=== PATIENT | female | born 1935 | race Caucasian/White ===

== ENCOUNTER 2017-09-24 20:11 | Inpatient (IN) | payer MEDICARE, MEDICAID ==
[~2017-09-24] VITALS: Ht 160 cm; Wt 60.3 kg
[2017-09-24 21:19] LABS: BASOPHILS % (AUTO) 1.4 % (0.0-2.0); EOSINOPHILS % (AUTO) 2.8 % (0.0-3.0); LYMPHOCYTES % (AUTO) 13.9 % (20.0-45.0); MEAN CORPUSCULAR HEMOGLOBIN 30.1 PG (27.0-31.0); MEAN CORPUSCULAR HGB CONC 31.4 G/DL (32.0-36.0); MEAN CORPUSCULAR VOLUME 96 FL (80-99); MONOCYTES % (AUTO) 6.4 % (1.0-10.0); NEUTROPHILS % (AUTO) 75.5 % (45.0-75.0); PLATELET COUNT 301 K/UL (150-450); RED BLOOD COUNT 4.56 M/UL (4.20-5.40); WHITE BLOOD COUNT 9.3 K/UL (4.8-10.8)
[2017-09-24 21:26] LABS: APPEARANCE,URINE SLIGHTLY CLOUDY; KETONES,URINE NEGATIVE (NEGATIVE); LEUKOCYTE ESTERASE ,URINE 3+ (NEGATIVE); NITRITE,URINE POSITIVE (NEGATIVE); PH,URINE 6 (4.5-8.0); PROTEIN,URINE 1+ (NEGATIVE); UROBILINOGEN,URINE NORMAL MG/DL (0.0-1.0)
[2017-09-24 21:39] LABS: ALANINE AMINOTRANSFERASE 29 U/L (12-78); ALBUMIN/GLOBULIN RATIO 1.1 (1.0-2.7); ANION GAP 8 mmol/L (5-15); ASPARTATE AMINO TRANSFERASE 20 U/L (15-37); CALCIUM 9.9 MG/DL (8.5-10.1); CARBON DIOXIDE 28 MMOL/L (21-32); CHLORIDE 102 MMOL/L (98-107); CREATININE 0.9 MG/DL (0.55-1.30); POTASSIUM 4.2 MMOL/L (3.5-5.1); SODIUM 138 MMOL/L (136-145); TOTAL PROTEIN 7.7 G/DL (6.4-8.2)
[2017-09-24 22:02] LABS: BACTERIA,URINE MANY /HPF; SQUAMOUS EPITHELIAL CELL,UR FEW /LPF (NONE/OCC)
[2017-09-24] MEDS ORDERED: Morphine Sulfate 2mg/ml Inj IVP PRN (22:30)
[2017-09-24] MEDS ORDERED: Albuterol/Ipratropium 3ml neb HHN PRN (22:30)
[2017-09-24] MEDS ORDERED: Miralax 17gm pkt ORAL PRN (22:30)
--- NOTE | 2017-09-24 22:36 | Emergency Room Report ---
History of Present Illness General Chief Complaint: Female Urogenital Problems Source: Patient, EMS Present Illness HPI Patient is an 82-year-old female sent in by long term after increased generalized weakness. Patient prior history of bladder surgery as well as urinary tract infection. She had recently been diagnosed with Klebsiella in her urine. The patient had not been vomiting. She denied any fever. Patient had been noted to be having history of urinary retention as well as prior bladder surgery for many years ago. The patient was sent in by her physician for further evaluation to [facility] Allergies: Coded Allergies: TETRACYCLINE (Verified Allergy, Unknown, 09/24/17) Patient History Past Medical History: see triage record Reviewed Nursing Documentation: PMH: Agreed, PSxH: Agreed Nursing Documentation-PMH Hx COPD: Yes Hx Diabetes: Yes Review of Systems All Other Systems: negative except mentioned in HPI Physical Exam Vital Signs Date Time Temp Pulse Resp B/P (MAP) Pulse Ox O2 Delivery O2 Flow Rate FiO2 09/24/17 20:18 98.1 90 16 136/79 96 Room Air Sp02 EP Interpretation: reviewed, normal General Appearance: normal inspection, well appearing, no apparent distress, alert, GCS 15 Head: atraumatic ENT: normal ENT inspection, hearing grossly normal, normal voice Neck: normal inspection, full range of motion, supple, no bony tend Respiratory: normal inspection, lungs clear, normal breath sounds, no respiratory distress, no retraction, no wheezing Cardiovascular #1: regular rate, rhythm, no edema Gastrointestinal: normal inspection, normal bowel sounds, non tender, soft, no guarding, no hernia Genitourinary: no CVA tenderness Musculoskeletal: normal inspection, back normal, normal range of motion Neurologic: normal inspection, alert, oriented x3, responsive, slab polisher III-XII nml as tested, speech normal Psychiatric: judgement/insight normal, anxious Skin: normal inspection, normal color, no rash Medical Decision Making Diagnostic Impression: Primary Impression: Complicated UTI (urinary tract infection) Additional Impressions: Generalized weakness Diabetes ER Course The patient presented for urinary tract infection. Because of complexity of patient's case laboratory testing and imaging studies were ordered. I laboratory studies were notable for evidence of urinary infection. The patient was given IV antibiotics.WBC and lactic acid level were normal. Dr. Arnel Wagner was contacted for inpatient management due to panel physician Labs Test 09/24/17 21:00 White Blood Count 9.3 K/UL (4.8-10.8) Red Blood Count 4.56 M/UL (4.20-5.40) Hemoglobin 13.7 G/DL (12.0-16.0) Hematocrit 43.8 % (37.0-47.0) Mean Corpuscular Volume 96 FL (80-99) Mean Corpuscular Hemoglobin 30.1 PG (27.0-31.0) Mean Corpuscular Hemoglobin Concent 31.4 G/DL (32.0-36.0) Red Cell Distribution Width 12.0 % (11.6-14.8) Platelet Count 301 K/UL (150-450) Mean Platelet Volume 5.0 FL (6.5-10.1) Neutrophils (%) (Auto) 75.5 % (45.0-75.0) Lymphocytes (%) (Auto) 13.9 % (20.0-45.0) Monocytes (%) (Auto) 6.4 % (1.0-10.0) Eosinophils (%) (Auto) 2.8 % (0.0-3.0) Basophils (%) (Auto) 1.4 % (0.0-2.0) Urine Color Pale yellow Urine Appearance Slightly cloudy Urine pH 6 (4.5-8.0) Urine Specific [place] 1.015 (1.005-1.035) Urine Protein 1+ (NEGATIVE) Urine Glucose (UA) Negative (NEGATIVE) Urine Ketones Negative (NEGATIVE) Urine Occult Blood 2+ (NEGATIVE) Urine Nitrite Positive (NEGATIVE) Urine Bilirubin Negative (NEGATIVE) Urine Urobilinogen Normal MG/DL (0.0-1.0) Urine Leukocyte Esterase 3+ (NEGATIVE) Urine RBC 5-10 /HPF (0 - 2) Urine WBC 10-15 /HPF (0 - 2) Urine Squamous Epithelial Cells Few /LPF (NONE/OCC) Urine Bacteria Many /HPF (NONE) Sodium Level 138 MMOL/L (136-145) Potassium Level 4.2 MMOL/L (3.5-5.1) Chloride Level 102 MMOL/L (98-107) Carbon Dioxide Level 28 MMOL/L (21-32) Anion Gap 8 mmol/L (5-15) Blood Urea Nitrogen 20 mg/dL (7-18) Creatinine 0.9 MG/DL (0.55-1.30) Estimat Glomerular Filtration Rate mL/min (>60) Glucose Level 171 MG/DL (74-106) Lactic Acid Level 0.90 mmol/L (0.66-2.22) Calcium Level 9.9 MG/DL (8.5-10.1) Total Bilirubin 0.3 MG/DL (0.2-1.0) Aspartate Amino Transf (AST/SGOT) 20 U/L (15-37) Alanine Aminotransferase (ALT/SGPT) 29 U/L (12-78) Alkaline Phosphatase 100 U/L (46-116) Total Protein 7.7 G/DL (6.4-8.2) Albumin 4.1 G/DL (3.4-5.0) Globulin 3.6 g/dL Albumin/Globulin Ratio 1.1 (1.0-2.7) Last Vital Signs Date Time Temp Pulse Resp B/P (MAP) Pulse Ox O2 Delivery O2 Flow Rate FiO2 09/24/ 20:18 98.1 90 16 136/79 96 Room Air Status: unchanged Disposition: ADMITTED INPATIENT Condition: Serious - ` Referrals: NON PHYSICIAN (PCP) Ranjeet Hagen Sep 24, 2017 22:36
--- NOTE | 2017-09-24 22:43 | History & Physical ---
History and Physical History & Physicial The patient was seen and examined at bedside and all new and available data was reviewed in the patients chart. Last 24 Hour Vital Signs Date Time Temp Pulse Resp B/P (MAP) Pulse Ox O2 Delivery O2 Flow Rate FiO2 09/24/17 20:18 98.1 90 16 136/79 96 Room Air F/U Labs F/U cultures Abx: Vanco, cefepime (Patient was seen earlier today. Signature timestamp does not reflect patient encounter time) Arnel Teague MD, MD Sep 24, 2017 22:43
[2017-09-24 23:16] VITALS: BP 122/80
[2017-09-25] VITALS: BP 140/77
[2017-09-25] MEDS ORDERED: Vancomycin 1 GM in D5W 275 ML IV SCH (00:30)
[2017-09-25] MEDS: Vancomycin 750mg/D5W 275ml IVPB SCH ×2 (02:03)
[2017-09-25 04:30] VITALS: BP 136/72
[2017-09-25] MEDS ORDERED: ASPIRIN-LOW81 MG ORAL (05:42)
[2017-09-25] MEDS ORDERED: GERI-KOT8.6 MG PO (05:42)
[2017-09-25] MEDS ORDERED: METFORMIN HCL500 M1 ORAL (05:42)
[2017-09-25] MEDS ORDERED: ZOLPIDEM TARTRAT5 MG ORAL (05:42)
[2017-09-25] MEDS ORDERED: JANUVIA25 MG ORAL (05:42)
[2017-09-25] MEDS ORDERED: ACETAMINOPHEN325 M1 ORAL (05:42)
[2017-09-25] MEDS ORDERED: LORAZEPAM0.5 MG ORAL (05:42)
[2017-09-25] MEDS ORDERED: GLIPIZIDE XL10 MG ORAL (05:42)
[2017-09-25] MEDS ORDERED: MIRTAZAPINE7.5 MG ORAL (05:42)
[2017-09-25] MEDS ORDERED: DITROPAN10 MG ORAL (05:42)
[2017-09-25] MEDS: NovoLOG Insulin Flexpen SUBQ SCH ×4 (06:29→21:00)
[2017-09-25 07:16] LABS: BASOPHILS % (AUTO) 1.2 % (0.0-2.0); EOSINOPHILS % (AUTO) 5.7 % (0.0-3.0); LYMPHOCYTES % (AUTO) 22.9 % (20.0-45.0); MEAN CORPUSCULAR HEMOGLOBIN 31.7 PG (27.0-31.0); MEAN CORPUSCULAR HGB CONC 33.4 G/DL (32.0-36.0); MEAN CORPUSCULAR VOLUME 95 FL (80-99); MEAN PLATELET VOLUME 5.8 FL (6.5-10.1); MONOCYTES % (AUTO) 9.8 % (1.0-10.0); NEUTROPHILS % (AUTO) 60.3 % (45.0-75.0); PLATELET COUNT 250 K/UL (150-450); RED CELL DISTRIBUTION WIDTH 11.9 % (11.6-14.8); WHITE BLOOD COUNT 7.8 K/UL (4.8-10.8)
[2017-09-25 07:34] LABS: ALANINE AMINOTRANSFERASE 25 U/L (12-78); ANION GAP 8 mmol/L (5-15); ASPARTATE AMINO TRANSFERASE 17 U/L (15-37); CARBON DIOXIDE 25 MMOL/L (21-32); CHLORIDE 105 MMOL/L (98-107); CREATININE 0.8 MG/DL (0.55-1.30); SODIUM 138 MMOL/L (136-145); TOTAL PROTEIN 6.3 G/DL (6.4-8.2)
[2017-09-25 07:56] VITALS: BP 101/55
[2017-09-25] MEDS: Cefepime HCl 2 GM in D5W 55 ML IV SCH (08:25)
[2017-09-25] MEDS: Heparin 5000 units/ml inj SUBQ SCH ×2 (08:25→21:00)
--- NOTE | 2017-09-25 09:39 | Consultation ---
History of Present Illness General Date patient seen: Sep 25, 2017 Time patient seen: 08:45 Chief Complaint: Female Urogenital Problems Referring physician: dr Wagner Reason for Consultation: inpatient management Present Illness HPI 82y/old female with PMH of CAD, DM, COPD, depression, bladder surgery, neurogenic bladder with urinary retention , recurrent UTI was [facility] from the [facility] due to increased generalized weakness. Recent UTI infection with Klebsiella No reports of n/v/ no reports of fevers, chills Workup i ED revealed no leukocytosis, no fever UA grossly positive for UTI patient was admitted for management of complicated UTI with IV abx Allergies: Coded Allergies: TETRACYCLINE (Verified Allergy, Unknown, 09/24/17) Medication History Scheduled Aspirin (Aspirin EC), 81 MG ORAL DAILY, (Reported) Glipizide (Glipizide), 10 MG ORAL BIDAC, (Reported) Metformin Hcl* (Metformin Hcl*), 500 MG ORAL TWICE A DAY, (Reported) Mirtazapine* (Mirtazapine*), 7.5 MG ORAL BEDTIME, (Reported) Oxybutynin Chloride (Oxybutynin Chloride), 10 MG ORAL BID, (Reported) Sennosides (Jamila-Dung), 8.6 MG PO BEDTIME, (Reported) Sitagliptin* (Januvia*), 50 MG ORAL ACBREAKFAST, (Reported) Zolpidem Tartrate* (Zolpidem Tartrate*), 5 MG ORAL BEDTIME, (Reported) Scheduled PRN Acetaminophen* (Acetaminophen 325MG Tablet*), 650 MG ORAL Q4H PRN for Mild Pain (Pain Scale 1-3), (Reported) Lorazepam* (Lorazepam*), 0.5 MG ORAL Q6HR PRN for For Anxiety, (Reported) Patient History History Provided By: Patient Healthcare decision maker Resuscitation status Full Code Advanced Directive on File Yes Past Medical/Surgical History Past Medical/Surgical History: (1) Diabetes (2) UTI (urinary tract infection) Review of Systems Constitutional: Reports: weakness Eye: Reports: acuity changes ENT: Reports: hearing loss Respiratory: Reports: other - COPD Cardiovascular: Reports: other - CAD Gastrointestinal: Reports: constipation Genitourinary: Reports: see HPI Musculoskeletal: Reports: muscle stiffness Psychiatric: Reports: depressed feelings Endocrine: Reports: other - DM Hematologic/Lymphatic: Reports: easy bruising Physical Exam General Appearance: no apparent distress, alert Lines, tubes and drains: peripheral HEENT: normocephalic, atraumatic, anicteric, mucous membranes moist Neck: non-tender, supple Respiratory/Chest: lungs clear - with moderate air entry , no respiratory distress, no accessory muscle use Cardiovascular/Chest: normal rate, regular rhythm, no JVD Abdomen: normal bowel sounds, non tender, soft Extremities: non-tender, no calf tenderness Neurologic: medical transcriber II-XII grossly normal, alert, responsive, normal mood/affect Musculoskeletal: atrophy - BLE Last 24 Hour Vital Signs Date Time Temp Pulse Resp B/P (MAP) Pulse Ox O2 Delivery O2 Flow Rate FiO2 09/25/17 07:56 98.1 80 18 101/55 95 Room Air 09/25/17 04:30 97.9 70 18 136/72 96 Room Air 09/25/17 00:00 98.0 78 20 140/77 97 Room Air 09/24/17 23:16 98.1 16 122/80 96 Room Air 09/24/17 23:16 98.1 16 122/80 96 Room Air 09/24/17 20:18 98.1 90 16 136/79 96 Room Air Laboratory Tests Test 09/24/17 21:00 09/25/17 05:25 White Blood Count 9.3 K/UL (4.8-10.8) 7.8 K/UL (4.8-10.8) Red Blood Count 4.56 M/UL (4.20-5.40) 3.70 M/UL (4.20-5.40) L Hemoglobin 13.7 G/DL (12.0-16.0) 11.7 G/DL (12.0-16.0) L Hematocrit 43.8 % (37.0-47.0) 35.2 % (37.0-47.0) L Mean Corpuscular Volume 96 FL (80-99) 95 FL (80-99) Mean Corpuscular Hemoglobin 30.1 PG (27.0-31.0) 31.7 PG (27.0-31.0) H Mean Corpuscular Hemoglobin Concent 31.4 G/DL (32.0-36.0) L 33.4 G/DL (32.0-36.0) Red Cell Distribution Width 12.0 % (11.6-14.8) 11.9 % (11.6-14.8) Platelet Count 301 K/UL (150-450) 250 K/UL (150-450) Mean Platelet Volume 5.0 FL (6.5-10.1) L 5.8 FL (6.5-10.1) L Neutrophils (%) (Auto) 75.5 % (45.0-75.0) H 60.3 % (45.0-75.0) Lymphocytes (%) (Auto) 13.9 % (20.0-45.0) L 22.9 % (20.0-45.0) Monocytes (%) (Auto) 6.4 % (1.0-10.0) 9.8 % (1.0-10.0) Eosinophils (%) (Auto) 2.8 % (0.0-3.0) 5.7 % (0.0-3.0) H Basophils (%) (Auto) 1.4 % (0.0-2.0) 1.2 % (0.0-2.0) Urine Color Pale yellow Urine Appearance Slightly cloudy Urine pH 6 (4.5-8.0) Urine Specific [place] 1.015 (1.005-1.035) Urine Protein 1+ (NEGATIVE) H Urine Glucose (UA) Negative (NEGATIVE) Urine Ketones Negative (NEGATIVE) Urine Occult Blood 2+ (NEGATIVE) H Urine Nitrite Positive (NEGATIVE) H Urine Bilirubin Negative (NEGATIVE) Urine Urobilinogen Normal MG/DL (0.0-1.0) Urine Leukocyte Esterase 3+ (NEGATIVE) H Urine RBC 5-10 /HPF (0 - 2) H Urine WBC 10-15 /HPF (0 - 2) H Urine Squamous Epithelial Cells Few /LPF (NONE/OCC) Urine Bacteria Many /HPF (NONE) H Sodium Level 138 MMOL/L (136-145) 138 MMOL/L (136-145) Potassium Level 4.2 MMOL/L (3.5-5.1) 4.0 MMOL/L (3.5-5.1) Chloride Level 102 MMOL/L (98-107) 105 MMOL/L (98-107) Carbon Dioxide Level 28 MMOL/L (21-32) 25 MMOL/L (21-32) Anion Gap 8 mmol/L (5-15) 8 mmol/L (5-15) Blood Urea Nitrogen 20 mg/dL (7-18) H 22 mg/dL (7-18) H Creatinine 0.9 MG/DL (0.55-1.30) 0.8 MG/DL (0.55-1.30) Estimat Glomerular Filtration Rate mL/min (>60) mL/min (>60) Glucose Level 171 MG/DL (74-106) H 150 MG/DL (74-106) H Lactic Acid Level 0.90 mmol/L (0.66-2.22) Calcium Level 9.9 MG/DL (8.5-10.1) 9.0 MG/DL (8.5-10.1) Total Bilirubin 0.3 MG/DL (0.2-1.0) 0.3 MG/DL (0.2-1.0) Aspartate Amino Transf (AST/SGOT) 20 U/L (15-37) 17 U/L (15-37) Alanine Aminotransferase (ALT/SGPT) 29 U/L (12-78) 25 U/L (12-78) Alkaline Phosphatase 100 U/L (46-116) 80 U/L (46-116) Total Protein 7.7 G/DL (6.4-8.2) 6.3 G/DL (6.4-8.2) L Albumin 4.1 G/DL (3.4-5.0) 3.1 G/DL (3.4-5.0) L Globulin 3.6 g/dL 3.2 g/dL Albumin/Globulin Ratio 1.1 (1.0-2.7) 1.0 (1.0-2.7) Height (Feet): 5 Height (Inches): 3.00 Weight (Pounds): 133 Medications Current Medications Medications (Trade) Dose Ordered Sig/Gemma Route PRN Reason Start Time Stop Time Status Last Admin Dose Admin Acetaminophen (Tylenol) 650 mg Q4H PRN ORAL fever 09/24/17 22:30 10/24/17 22:29 Albuterol/ Ipratropium (Albuterol/ Ipratropium) 3 ml Q4H PRN HHN Shortness of Breath 09/24/17 22:30 09/29/17 22:29 Cefepime HCl 2 gm/ Dextrose 55 ml @ 110 mls/hr Q24H IV 09/25/17 09:00 10/02/17 08:59 09/25/17 08:25 Dextrose (Dextrose 50%) STAT PRN IV Hypoglycemia 09/24/17 22:30 10/24/17 22:29 Heparin Sodium (Porcine) (Heparin 5000 units/ml) 5,000 units EVERY 12 HOURS SUBQ 09/25/17 09:00 10/25/17 08:59 Insulin Aspart (NovoLOG) BEFORE MEALS AND HS SUBQ 09/25/17 06:30 10/25/17 06:29 Morphine Sulfate (Morphine Sulfate) 2 mg Q4H PRN IVP Moderate Pain (Pain Scale 4-6) 09/24/17 22:30 10/01/17 22:29 Ondansetron HCl (Zofran) 4 mg Q6H PRN IVP Nausea & Vomiting 09/24/17 22:30 10/24/17 22:29 Phenazopyridine HCl (Pyridium) 100 mg DAILY PRN ORAL dysuria 09/24/17 22:30 10/24/17 22:29 Polyethylene Glycol (Miralax) 17 gm DAILYPRN PRN ORAL Constipation 09/24/17 22:30 10/24/17 22:29 Temazepam (Restoril) 15 mg HSPRN PRN ORAL Insomnia 09/24/17 22:30 10/01/17 22:29 Vancomycin HCl (Vanco rx to dose) 1 ea DAILY PRN MISC PER PROTOCOL 09/24/17 23:30 10/24/17 23:29 Vancomycin HCl 750 mg/Dextrose 275 ml @ 183.708 mls/hr Q24H IVPB 09/25/17 01:00 09/30/17 00:59 09/25/17 02:03 Assessment/Plan Assessment/Plan ASSESSMENT complicated UTI with hx of recurrent UTI and bladder surgery hx of urinary retention anemia possible protein calorie malnutrition DM COPD CAD PLAN OF CARE MS floor abx fup with cx ID consult BS management with SS of insulin, check HgA1c monitor HH O2 HHN prn DVT prophylaxis pain management diet as tolerated a/emetic prn symptomatic Rx case discussed and evaluated by supervising physician Tanmay Churchill)Viki NP Sep 25, 2017 09:39
[2017-09-25 11:16] VITALS: BP 122/66
--- NOTE | 2017-09-25 15:34 | Consultation ---
Consult Note Consult Note ID CONSULT: Dict# [id number] Assessment/Plan ASSESSMENT: 82 y/o female with: // Probable recurrent complicated UTI - UCx pending - h/o K.pneumoniae - h/o neurogenic bladder, retention SP surgery // Afebrile without leukocytosis // Generalized weakness // DM2 with hyperglycemia // h/o CAD // [facility] resident // TCA allergy // Full Code PLAN: - continue empiric IV vancomycin, cefepime d# 1 pending cultures - check renal US - f/u cultures - monitor CBC, temperatures - monitor BMP Thanks! Will follow TARAS MANZO Sep 25, 2017 15:34
[2017-09-25 16:00] VITALS: BP 122/69
--- NOTE | 2017-09-25 16:38 | Internal Med Progress Note ---
Subjective Physician Name Arnel Wagner Attending Physician Arnel Wagner MD Current Medications Medications (Trade) Dose Ordered Sig/Gemma Route PRN Reason Start Time Stop Time Status Last Admin Dose Admin Acetaminophen (Tylenol) 650 mg Q4H PRN ORAL fever 09/24/17 22:30 10/24/17 22:29 Albuterol/ Ipratropium (Albuterol/ Ipratropium) 3 ml Q4H PRN HHN Shortness of Breath 09/24/17 22:30 09/29/17 22:29 Cefepime HCl 2 gm/ Dextrose 55 ml @ 110 mls/hr Q24H IV 09/25/17 09:00 10/02/17 08:59 09/25/17 08:25 Dextrose (Dextrose 50%) STAT PRN IV Hypoglycemia 09/24/17 22:30 10/24/17 22:29 Heparin Sodium (Porcine) (Heparin 5000 units/ml) 5,000 units EVERY 12 HOURS SUBQ 09/25/17 09:00 10/25/17 08:59 Insulin Aspart (NovoLOG) BEFORE MEALS AND HS SUBQ 09/25/17 06:30 10/25/17 06:29 Morphine Sulfate (Morphine Sulfate) 2 mg Q4H PRN IVP Moderate Pain (Pain Scale 4-6) 09/24/17 22:30 10/01/17 22:29 Ondansetron HCl (Zofran) 4 mg Q6H PRN IVP Nausea & Vomiting 09/24/17 22:30 10/24/17 22:29 Phenazopyridine HCl (Pyridium) 100 mg DAILY PRN ORAL dysuria 09/24/17 22:30 10/24/17 22:29 Polyethylene Glycol (Miralax) 17 gm DAILYPRN PRN ORAL Constipation 09/24/17 22:30 10/24/17 22:29 Temazepam (Restoril) 15 mg HSPRN PRN ORAL Insomnia 09/24/17 22:30 10/01/17 22:29 Vancomycin HCl (Vanco rx to dose) 1 ea DAILY PRN MISC PER PROTOCOL 09/24/17 23:30 10/24/17 23:29 Vancomycin HCl 750 mg/Dextrose 275 ml @ 183.708 mls/hr Q24H IVPB 09/25/17 01:00 09/30/17 00:59 09/25/17 02:03 Allergies: Coded Allergies: TETRACYCLINE (Verified Allergy, Unknown, 09/24/17) Subjective awake, alert, responsive, NAD, No CP or SOB Objective Last Vital Signs Date Time Temp Pulse Resp B/P (MAP) Pulse Ox O2 Delivery O2 Flow Rate FiO2 09/25/17 16:00 98.1 86 20 122/69 95 Room Air Laboratory Tests Test 09/24/17 21:00 09/25/17 05:25 White Blood Count 9.3 K/UL (4.8-10.8) 7.8 K/UL (4.8-10.8) Red Blood Count 4.56 M/UL (4.20-5.40) 3.70 M/UL (4.20-5.40) L Hemoglobin 13.7 G/DL (12.0-16.0) 11.7 G/DL (12.0-16.0) L Hematocrit 43.8 % (37.0-47.0) 35.2 % (37.0-47.0) L Mean Corpuscular Volume 96 FL (80-99) 95 FL (80-99) Mean Corpuscular Hemoglobin 30.1 PG (27.0-31.0) 31.7 PG (27.0-31.0) H Mean Corpuscular Hemoglobin Concent 31.4 G/DL (32.0-36.0) L 33.4 G/DL (32.0-36.0) Red Cell Distribution Width 12.0 % (11.6-14.8) 11.9 % (11.6-14.8) Platelet Count 301 K/UL (150-450) 250 K/UL (150-450) Mean Platelet Volume 5.0 FL (6.5-10.1) L 5.8 FL (6.5-10.1) L Neutrophils (%) (Auto) 75.5 % (45.0-75.0) H 60.3 % (45.0-75.0) Lymphocytes (%) (Auto) 13.9 % (20.0-45.0) L 22.9 % (20.0-45.0) Monocytes (%) (Auto) 6.4 % (1.0-10.0) 9.8 % (1.0-10.0) Eosinophils (%) (Auto) 2.8 % (0.0-3.0) 5.7 % (0.0-3.0) H Basophils (%) (Auto) 1.4 % (0.0-2.0) 1.2 % (0.0-2.0) Urine Color Pale yellow Urine Appearance Slightly cloudy Urine pH 6 (4.5-8.0) Urine Specific [place] 1.015 (1.005-1.035) Urine Protein 1+ (NEGATIVE) H Urine Glucose (UA) Negative (NEGATIVE) Urine Ketones Negative (NEGATIVE) Urine Occult Blood 2+ (NEGATIVE) H Urine Nitrite Positive (NEGATIVE) H Urine Bilirubin Negative (NEGATIVE) Urine Urobilinogen Normal MG/DL (0.0-1.0) Urine Leukocyte Esterase 3+ (NEGATIVE) H Urine RBC 5-10 /HPF (0 - 2) H Urine WBC 10-15 /HPF (0 - 2) H Urine Squamous Epithelial Cells Few /LPF (NONE/OCC) Urine Bacteria Many /HPF (NONE) H Sodium Level 138 MMOL/L (136-145) 138 MMOL/L (136-145) Potassium Level 4.2 MMOL/L (3.5-5.1) 4.0 MMOL/L (3.5-5.1) Chloride Level 102 MMOL/L (98-107) 105 MMOL/L (98-107) Carbon Dioxide Level 28 MMOL/L (21-32) 25 MMOL/L (21-32) Anion Gap 8 mmol/L (5-15) 8 mmol/L (5-15) Blood Urea Nitrogen 20 mg/dL (7-18) H 22 mg/dL (7-18) H Creatinine 0.9 MG/DL (0.55-1.30) 0.8 MG/DL (0.55-1.30) Estimat Glomerular Filtration Rate mL/min (>60) mL/min (>60) Glucose Level 171 MG/DL (74-106) H 150 MG/DL (74-106) H Lactic Acid Level 0.90 mmol/L (0.66-2.22) Calcium Level 9.9 MG/DL (8.5-10.1) 9.0 MG/DL (8.5-10.1) Total Bilirubin 0.3 MG/DL (0.2-1.0) 0.3 MG/DL (0.2-1.0) Aspartate Amino Transf (AST/SGOT) 20 U/L (15-37) 17 U/L (15-37) Alanine Aminotransferase (ALT/SGPT) 29 U/L (12-78) 25 U/L (12-78) Alkaline Phosphatase 100 U/L (46-116) 80 U/L (46-116) Total Protein 7.7 G/DL (6.4-8.2) 6.3 G/DL (6.4-8.2) L Albumin 4.1 G/DL (3.4-5.0) 3.1 G/DL (3.4-5.0) L Globulin 3.6 g/dL 3.2 g/dL Albumin/Globulin Ratio 1.1 (1.0-2.7) 1.0 (1.0-2.7) Intake and Output 09/25/17 09/26/17 19:00 07:00 Intake Total 55 ml Balance 55 ml IV Total 55 ml Objective General: No acute distress, awake and alert HEENT: NCAT, sclera anicteric, PERRL, EOMI. Neck: Supple, no significant jugular venous distention, Lungs: Good inspiratory effort, clear to auscultation bilaterally, no Wheeze or Rales. Heart: Regular rate and rhythm, normal S1/S2, no murmurs Abdomen: soft, nontender, nondistended. Normoactive bowel sounds. / Rectal: Refused and deferred. Extremities: No Cyanosis , clubbing or edema. Neuro: A&O x 3, Able to move all extremities Skin: warm, no rashes or lesions Psych: Normal mood and affect Assessment/Plan Assessment/Plan Probable recurrent complicated UTI - UCx pending History prior K.pneumoniae UTI History of neurogenic bladder, retention SP surgery Generalized weakness DM2 CAD Plan: Abx: Cefepime Monitor Labs and cultures. Monitor BS Ambulation Full code Arnel Wagner MD Sep 25, 2017 16:38
--- NOTE | 2017-09-25 18:31 | Consultation ---
History of Present Illness General Chief Complaint: Female Urogenital Problems Referring physician: dr Wagner Reason for Consultation: inpatient management Present Illness HPI 82y/old female with PMH of CAD, DM, COPD, depression, bladder surgery, neurogenic bladder with urinary retention , recurrent UTI was sent from the SNF due to increased generalized weakness. the pt pw anxiety, decrease energy, poor appetite, sadness. Allergies: Coded Allergies: TETRACYCLINE (Verified Allergy, Unknown, 09/24/17) Medication History Scheduled Aspirin (Aspirin EC), 81 MG ORAL DAILY, (Reported) Glipizide (Glipizide), 10 MG ORAL BIDAC, (Reported) Metformin Hcl* (Metformin Hcl*), 500 MG ORAL TWICE A DAY, (Reported) Mirtazapine* (Mirtazapine*), 7.5 MG ORAL BEDTIME, (Reported) Oxybutynin Chloride (Oxybutynin Chloride), 10 MG ORAL BID, (Reported) Sennosides (Jamila-Dung), 8.6 MG PO BEDTIME, (Reported) Sitagliptin* (Januvia*), 50 MG ORAL ACBREAKFAST, (Reported) Zolpidem Tartrate* (Zolpidem Tartrate*), 5 MG ORAL BEDTIME, (Reported) Scheduled PRN Acetaminophen* (Acetaminophen 325MG Tablet*), 650 MG ORAL Q4H PRN for Mild Pain (Pain Scale 1-3), (Reported) Lorazepam* (Lorazepam*), 0.5 MG ORAL Q6HR PRN for For Anxiety, (Reported) Patient History History Provided By: Patient, Medical Record, PMD Healthcare decision maker Resuscitation status Full Code Advanced Directive on File Yes Past Medical/Surgical History Past Medical/Surgical History: (1) Generalized weakness (2) Diabetes (3) Complicated UTI (urinary tract infection) (4) UTI (urinary tract infection) Review of Systems Psychiatric: Reports: prior hx, anxiety, depressed feelings, emotional problems Physical Exam General Appearance: no apparent distress, alert Neurologic: alert, oriented x 3, responsive, depressed affect Last 24 Hour Vital Signs Date Time Temp Pulse Resp B/P (MAP) Pulse Ox O2 Delivery O2 Flow Rate FiO2 09/25/17 16:00 98.1 86 20 122/69 95 Room Air 09/25/17 11:16 96.7 84 18 122/66 96 Room Air 09/25/17 07:56 98.1 80 18 101/55 95 Room Air 09/25/17 04:30 97.9 70 18 136/72 96 Room Air 09/25/17 00:00 98.0 78 20 140/77 97 Room Air 09/24/17 23:16 98.1 16 122/80 96 Room Air 09/24/17 23:16 98.1 16 122/80 96 Room Air 09/24/17 20:18 98.1 90 16 136/79 96 Room Air Intake and Output 09/25/17 09/26/17 19:00 07:00 Intake Total 415 ml Balance 415 ml Intake Oral 360 ml IV Total 55 ml # Voids 3 Laboratory Tests Test 09/24/17 21:00 09/25/17 05:25 White Blood Count 9.3 K/UL (4.8-10.8) 7.8 K/UL (4.8-10.8) Red Blood Count 4.56 M/UL (4.20-5.40) 3.70 M/UL (4.20-5.40) L Hemoglobin 13.7 G/DL (12.0-16.0) 11.7 G/DL (12.0-16.0) L Hematocrit 43.8 % (37.0-47.0) 35.2 % (37.0-47.0) L Mean Corpuscular Volume 96 FL (80-99) 95 FL (80-99) Mean Corpuscular Hemoglobin 30.1 PG (27.0-31.0) 31.7 PG (27.0-31.0) H Mean Corpuscular Hemoglobin Concent 31.4 G/DL (32.0-36.0) L 33.4 G/DL (32.0-36.0) Red Cell Distribution Width 12.0 % (11.6-14.8) 11.9 % (11.6-14.8) Platelet Count 301 K/UL (150-450) 250 K/UL (150-450) Mean Platelet Volume 5.0 FL (6.5-10.1) L 5.8 FL (6.5-10.1) L Neutrophils (%) (Auto) 75.5 % (45.0-75.0) H 60.3 % (45.0-75.0) Lymphocytes (%) (Auto) 13.9 % (20.0-45.0) L 22.9 % (20.0-45.0) Monocytes (%) (Auto) 6.4 % (1.0-10.0) 9.8 % (1.0-10.0) Eosinophils (%) (Auto) 2.8 % (0.0-3.0) 5.7 % (0.0-3.0) H Basophils (%) (Auto) 1.4 % (0.0-2.0) 1.2 % (0.0-2.0) Urine Color Pale yellow Urine Appearance Slightly cloudy Urine pH 6 (4.5-8.0) Urine Specific Wilburn 1.015 (1.005-1.035) Urine Protein 1+ (NEGATIVE) H Urine Glucose (UA) Negative (NEGATIVE) Urine Ketones Negative (NEGATIVE) Urine Occult Blood 2+ (NEGATIVE) H Urine Nitrite Positive (NEGATIVE) H Urine Bilirubin Negative (NEGATIVE) Urine Urobilinogen Normal MG/DL (0.0-1.0) Urine Leukocyte Esterase 3+ (NEGATIVE) H Urine RBC 5-10 /HPF (0 - 2) H Urine WBC 10-15 /HPF (0 - 2) H Urine Squamous Epithelial Cells Few /LPF (NONE/OCC) Urine Bacteria Many /HPF (NONE) H Sodium Level 138 MMOL/L (136-145) 138 MMOL/L (136-145) Potassium Level 4.2 MMOL/L (3.5-5.1) 4.0 MMOL/L (3.5-5.1) Chloride Level 102 MMOL/L (98-107) 105 MMOL/L (98-107) Carbon Dioxide Level 28 MMOL/L (21-32) 25 MMOL/L (21-32) Anion Gap 8 mmol/L (5-15) 8 mmol/L (5-15) Blood Urea Nitrogen 20 mg/dL (7-18) H 22 mg/dL (7-18) H Creatinine 0.9 MG/DL (0.55-1.30) 0.8 MG/DL (0.55-1.30) Estimat Glomerular Filtration Rate mL/min (>60) mL/min (>60) Glucose Level 171 MG/DL (74-106) H 150 MG/DL (74-106) H Lactic Acid Level 0.90 mmol/L (0.66-2.22) Calcium Level 9.9 MG/DL (8.5-10.1) 9.0 MG/DL (8.5-10.1) Total Bilirubin 0.3 MG/DL (0.2-1.0) 0.3 MG/DL (0.2-1.0) Aspartate Amino Transf (AST/SGOT) 20 U/L (15-37) 17 U/L (15-37) Alanine Aminotransferase (ALT/SGPT) 29 U/L (12-78) 25 U/L (12-78) Alkaline Phosphatase 100 U/L (46-116) 80 U/L (46-116) Total Protein 7.7 G/DL (6.4-8.2) 6.3 G/DL (6.4-8.2) L Albumin 4.1 G/DL (3.4-5.0) 3.1 G/DL (3.4-5.0) L Globulin 3.6 g/dL 3.2 g/dL Albumin/Globulin Ratio 1.1 (1.0-2.7) 1.0 (1.0-2.7) Height (Feet): 5 Height (Inches): 3.00 Weight (Pounds): 133 Medications Current Medications Medications (Trade) Dose Ordered Sig/Gemma Route PRN Reason Start Time Stop Time Status Last Admin Dose Admin Acetaminophen (Tylenol) 650 mg Q4H PRN ORAL fever 09/24/17 22:30 10/24/17 22:29 09/25/17 17:48 Albuterol/ Ipratropium (Albuterol/ Ipratropium) 3 ml Q4H PRN HHN Shortness of Breath 09/24/17 22:30 09/29/17 22:29 Cefepime HCl 2 gm/ Dextrose 55 ml @ 110 mls/hr Q24H IV 09/25/17 09:00 10/02/17 08:59 09/25/17 08:25 Dextrose (Dextrose 50%) STAT PRN IV Hypoglycemia 09/24/17 22:30 10/24/17 22:29 Heparin Sodium (Porcine) (Heparin 5000 units/ml) 5,000 units EVERY 12 HOURS SUBQ 09/25/17 09:00 10/25/17 08:59 Insulin Aspart (NovoLOG) BEFORE MEALS AND HS SUBQ 09/25/17 06:30 10/25/17 06:29 Morphine Sulfate (Morphine Sulfate) 2 mg Q4H PRN IVP Moderate Pain (Pain Scale 4-6) 09/24/17 22:30 10/01/17 22:29 Ondansetron HCl (Zofran) 4 mg Q6H PRN IVP Nausea & Vomiting 09/24/17 22:30 10/24/17 22:29 Phenazopyridine HCl (Pyridium) 100 mg DAILY PRN ORAL dysuria 09/24/17 22:30 10/24/17 22:29 Polyethylene Glycol (Miralax) 17 gm DAILYPRN PRN ORAL Constipation 09/24/17 22:30 10/24/17 22:29 Temazepam (Restoril) 15 mg HSPRN PRN ORAL Insomnia 09/24/17 22:30 10/01/17 22:29 Vancomycin HCl (Vanco rx to dose) 1 ea DAILY PRN MISC PER PROTOCOL 09/24/17 23:30 10/24/17 23:29 Vancomycin HCl 750 mg/Dextrose 275 ml @ 183.708 mls/hr Q24H IVPB 09/25/17 01:00 09/30/17 00:59 09/25/17 02:03 Assessment/Plan Status: stable, progressing Assessment/Plan anxiety d/o lexapro 10mg qam ambien 5mg qhs Hazel Watters M.D. Sep 25, 2017 18:31
[2017-09-25 19:08] VITALS: BP 125/67
[2017-09-25] MEDS ORDERED: Tubing IV Secondary IV ONE (21:05)
[2017-09-25] MEDS ORDERED: NS 275ml ONE (21:05)
--- NOTE | 2017-09-25 22:46 | History and Physical Report ---
DATE OF ADMISSION: 09/24/2017 CHIEF COMPLAINT: Dysuria, frequency, and hesitancy. HISTORY OF PRESENT ILLNESS: This is an 82-year-old female with past medical history significant for coronary artery disease, diabetes type 2, chronic obstructive pulmonary disease, depression, bladder surgery, history of bilateral ovariectomy, and neurogenic bladder with a history of urinary retention with recurrent urinary tract infection, who has presented to the hospital from nursing facility after she was noted to have generalized weakness, dysuria, and frequency. The patient was recently treated for urinary tract infection with Klebsiella pneumoniae. She denies any nausea or vomiting. Denies any fever or chills. Denies any hemoptysis or hematochezia. Shortly after initial evaluation in the emergency room, the patient was admitted to the hospital with a complicated urinary tract infection for intravenous antibiotics. PAST MEDICAL HISTORY/PAST SURGICAL HISTORY: As above. History of diabetes type 2, coronary artery disease, chronic obstructive pulmonary disease, depression, bladder surgery with bladder wall scraping, neurogenic bladder with urinary retention, recurrent urinary tract infection, and status post ovariectomy. MEDICATIONS AT HOME: Significant for aspirin, glipizide, metformin, mirtazapine, oxybutynin, Senokot, Januvia, and Ambien. ALLERGIES: Tetracyclines. SOCIAL HISTORY: Denies any smoking, alcohol, or drugs. FAMILY HISTORY: Noncontributory except diabetes runs in the family. REVIEW OF SYSTEMS: Mostly as above. Complained about dysuria and frequency. Denies any hemoptysis or hematochezia. Denies any bright red blood per rectum. Denies any suicidal or homicidal ideation. Denies any loss of consciousness. The patient is feeling depressed. Denies any double vision. PHYSICAL EXAMINATION: VITAL SIGN: On admission is significant for temperature 98.1, pulse of 90, respirations 16, and blood pressure 136/76. GENERAL: The patient is awake, responsive, and in no acute distress. HEENT: Pupils are reactive to light. Extraocular movements are intact. NECK: Supple. No JVD. LUNGS: Good air entry. No wheezing or rales. HEART: Reveals S1 and S2. Regular rhythm. No gallops. ABDOMEN: Soft, nondistended, and nontender. Tender in the lower quadrant. No rebound tenderness. No fluid shift. EXTREMITIES: No cyanosis, clubbing, or edema. NEUROLOGIC: Cranial nerves II through XII are grossly intact. Motor is 5/5 in all extremities. LABORATORY DATA: On admission, WBC of 9.3, hemoglobin 13, hematocrit 43, and platelet is 301,000. Sodium 138, potassium 4.2, chloride 102, bicarbonate 28, BUN 20, creatinine 0.9, and glucose is 171. Urinalysis, positive nitrite, +2 occult blood, +1 protein, +3 leukocytes, and many bacteria. ASSESSMENT: 1. Recurring urinary tract infection with complicated urinary tract infection. 2. Prior history of Klebsiella urinary tract infection. 3. Diabetes type 2. 4. Coronary artery disease. 5. Chronic obstructive pulmonary disease. 6. Depression. 7. History of neurogenic bladder with urinary retention. PLAN: Admit the patient to Med/Surg. We will follow up laboratory. Broad-spectrum antibiotics with cefepime and vancomycin. We will follow up with the cultures. Resume home medications. Accu-Chek with sliding scale. We will follow up with the ID consultation. Arnel Wagner M.D. DR: ALFREDO JOB#: [id number] CC:
[2017-09-26] VITALS (7 sets, daily range): BP systolic 122–150; BP diastolic 60–79
[2017-09-26] MEDS: Vancomycin 750mg/D5W 275ml IVPB SCH ×2 (01:00)
--- NOTE | 2017-09-26 02:16 | Consultation ---
DATE OF CONSULTATION: 09/25/2017 INFECTIOUS DISEASE CONSULTATION REQUESTING PHYSICIAN: Arnel Wagner M.D. REASON FOR CONSULTATION: Recurrent complicated UTI. HISTORY OF PRESENT ILLNESS: This is an 82-year-old diabetic female, [facility] resident, admitted on 09/24/2017 with generalized weakness. She has a history of recurrent UTIs, neurogenic bladder, urinary retention, and status post bladder surgery, not otherwise specified. Reportedly, recently grew Klebsiella pneumoniae, culture and sensitivity of which is unavailable at this time. Her urinalysis suggest persistent UTI. She is afebrile without leukocytosis. Urine culture is pending. She has been started on empiric IV vancomycin and cefepime and Infectious Disease now consulted to assist in management. PAST MEDICAL HISTORY: 1. Diabetes. 2. Coronary artery disease. 3. COPD. 4. Neurogenic bladder and urinary retention. 5. Recurrent UTIs, reportedly with recent Klebsiella pneumoniae. PAST SURGICAL HISTORY: Bladder surgery, not otherwise specified. MEDICATIONS: 1. Vancomycin. 2. Cefepime. 3. Subcutaneous heparin. ALLERGIES: Tetracycline. SOCIAL HISTORY: The patient is a resident of a [facility]. No active tobacco, alcohol, or illicit drug abuse. FAMILY HISTORY: Reviewed and noncontributory. REVIEW OF SYSTEMS: As per history of present illness. Ten systems reviewed. All pertinent positives and negatives are noted. PHYSICAL EXAMINATION: VITAL SIGNS: Maximum temperature 98.1 degrees, blood pressure 122/66, heart rate 84, respiratory rate 18, and saturating 96% on room air. GENERAL: No apparent distress. Nontoxic appearing. CARDIOVASCULAR: Regular rate and rhythm. No murmurs. PULMONARY: Clear to auscultation bilaterally. ABDOMINAL: Bowel sounds present. Soft, nondistended, and nontender. EXTREMITIES: No edema. SKIN: No rash. LABORATORY DATA: White blood cell count 7.8, hemoglobin 11.7, and platelets 250,000. Sodium 138, potassium 4, chloride 105, bicarbonate 25, BUN 27, creatinine 0.8, glucose 150, and lactic acid 0.9. Liver function tests within normal limits. Urinalysis with pyuria and bacteriuria. MICROBIOLOGY: 1. On 09/24/2017, blood culture pending. 2. On 09/24/2017, urine culture pending. IMAGING: None. ASSESSMENT: 1. Probable recurrent complicated urinary tract infection. Urine cultures pending. She has history of growth of Klebsiella pneumonia and history of neurogenic bladder with urinary retention, status post surgery. 2. Afebrile without leukocytosis. 3. Generalized weakness. 4. Diabetes type 2 with hyperglycemia. 5. History of coronary artery disease. 6. [facility] resident. 7. Tetracycline allergy. 8. Full Code. PLAN: 1. Continue empiric IV vancomycin and cefepime day #1 pending cultures. 2. Check renal ultrasound. 3. Follow up cultures. 4. Monitor CBC and temperatures. 5. Monitor BMP. Thank you. We will follow. Maxi Ramirez M.D. DR: Sudeep JOB#: [id number] CC: Arnel Wagner M.D.; Fax#: [phone] Luis Daniel Yen M.D; FAX#: [phone]
[2017-09-26] MEDS: NovoLOG Insulin Flexpen SUBQ SCH ×4 (06:27→20:56)
[2017-09-26] MEDS: Heparin 5000 units/ml inj SUBQ SCH ×2 (09:00→20:56)
[2017-09-26] MEDS: Cefepime HCl 2 GM in D5W 55 ML IV SCH (09:00)
--- NOTE | 2017-09-26 09:40 | Diagnostic Imaging Report ---
Indication: History of recurrent and complicated urinary tract infection Technique: Grayscale and duplex images of the kidneys, retroperitoneum, and bladder were obtained. Comparison:None Findings: Right kidney measures 9.3 cm in length. Left kidney measures 9.8 cm in length. Both kidneys demonstrate normal echogenicity. No hydronephrosis. No definite focal abnormality demonstrated. Normal inferior vena cava. Bladder demonstrates a diverticulum. Prevoid volume is 239 mL. Post void volume is 70 mL. Impression: Negative for hydronephrosis Bladder diverticulum Postvoid bladder volume 70 mL.
[2017-09-26] MEDS ORDERED: NS 275ml ONE (10:15)
--- NOTE | 2017-09-26 11:42 | Infectious Diseases Prog Note ---
Assessment/Plan Assessment/Plan ASSESSMENT: 82 y/o female with: // Probable recurrent complicated UTI - UCx GNR - h/o K.pneumoniae - h/o neurogenic bladder, retention SP surgery // Afebrile without leukocytosis // Generalized weakness // DM2 with hyperglycemia // h/o CAD // NH resident // TCA allergy // Full Code PLAN: - continue empiric cefepime d# 2 and DC IV vancomycin, d# 2 - check renal US - f/u cultures - monitor CBC, temperatures - monitor BMP Subjective Constitutional: Denies: no symptoms, fever, chills, fatigue, anorexia, drenching sweats, other Allergies: Coded Allergies: TETRACYCLINE (Verified Allergy, Unknown, 09/24/17) Objective Vital Signs Last 24 Hour Vital Signs Date Time Temp Pulse Resp B/P (MAP) Pulse Ox O2 Delivery O2 Flow Rate FiO2 09/26/17 08:16 97.9 91 18 131/61 95 Room Air 09/26/17 04:00 97.2 81 20 122/60 96 Room Air 09/26/17 00:00 96.4 92 19 133/62 98 Room Air 09/25/17 19:08 96.8 77 20 125/67 93 Room Air 09/25/17 16:00 98.1 86 20 122/69 95 Room Air Height (Feet): 5 Height (Inches): 3.00 Weight (Pounds): 133 HEENT: atraumatic Respiratory/Chest: no respiratory distress Cardiovascular: regularly irregular Abdomen: non distended Microbiology Date/Time Source Procedure Growth Status 09/24/17 23:34 Blood Blood Culture - Preliminary NO GROWTH AFTER 24 HOURS Resulted 09/24/17 23:03 Blood Blood Culture - Preliminary NO GROWTH AFTER 24 HOURS Resulted 09/24/17 21:00 Urine,Clean Catch Urine Culture - Preliminary Gram Negative Odilon Resulted Current Medications Medications (Trade) Dose Ordered Sig/Gemma Route PRN Reason Start Time Stop Time Status Last Admin Dose Admin Acetaminophen (Tylenol) 650 mg Q4H PRN ORAL fever 09/24/17 22:30 10/24/17 22:29 09/25/17 17:48 Albuterol/ Ipratropium (Albuterol/ Ipratropium) 3 ml Q4H PRN HHN Shortness of Breath 09/24/17 22:30 09/29/17 22:29 Cefepime HCl 2 gm/ Dextrose 55 ml @ 110 mls/hr Q24H IV 09/25/17 09:00 10/02/17 08:59 09/25/17 08:25 Dextrose (Dextrose 50%) STAT PRN IV Hypoglycemia 09/24/17 22:30 10/24/17 22:29 Escitalopram Oxalate (Lexapro) 10 mg DAILY ORAL 09/26/17 09:00 10/26/17 08:59 Heparin Sodium (Porcine) (Heparin 5000 units/ml) 5,000 units EVERY 12 HOURS SUBQ 09/25/17 09:00 10/25/17 08:59 Insulin Aspart (NovoLOG) BEFORE MEALS AND HS SUBQ 09/25/17 06:30 10/25/17 06:29 Morphine Sulfate (Morphine Sulfate) 2 mg Q4H PRN IVP Moderate Pain (Pain Scale 4-6) 09/24/17 22:30 10/01/17 22:29 Ondansetron HCl (Zofran) 4 mg Q6H PRN IVP Nausea & Vomiting 09/24/17 22:30 10/24/17 22:29 Phenazopyridine HCl (Pyridium) 100 mg DAILY PRN ORAL dysuria 09/24/17 22:30 10/24/17 22:29 Polyethylene Glycol (Miralax) 17 gm DAILYPRN PRN ORAL Constipation 09/24/17 22:30 10/24/17 22:29 Temazepam (Restoril) 15 mg HSPRN PRN ORAL Insomnia 09/24/17 22:30 10/01/17 22:29 Vancomycin HCl (Vanco rx to dose) 1 ea DAILY PRN MISC PER PROTOCOL 09/24/17 23:30 10/24/17 23:29 Vancomycin/Sodium Chloride 250 ml @ 167.007 mls/hr Q24H IVPB 09/27/17 01:00 10/02/17 00:59 ELI TARIQ M.D. Sep 26, 2017 11:42
--- NOTE | 2017-09-26 13:19 | Pulmonology Progress Note ---
Assessment/Plan Assessment/Plan ASSESSMENT complicated UTI with hx of recurrent UTI and bladder surgery hx of urinary retention anemia possible protein calorie malnutrition DM COPD CAD PLAN OF CARE MS floor abx urine cx + GNR ID follows BS management with SS of insulin, check HgA1c monitor HH O2 HHN prn DVT prophylaxis pain management diet as tolerated a/emetic prn symptomatic Rx case discussed and evaluated by supervising physician Subjective Allergies: Coded Allergies: TETRACYCLINE (Verified Allergy, Unknown, 09/24/17) Subjective afebrile, no leukocytosis urine cx pending Objective Last 24 Hour Vital Signs Date Time Temp Pulse Resp B/P (MAP) Pulse Ox O2 Delivery O2 Flow Rate FiO2 09/26/17 12:06 97.8 86 18 144/79 95 Room Air 09/26/17 08:16 97.9 91 18 131/61 95 Room Air 09/26/17 04:00 97.2 81 20 122/60 96 Room Air 09/26/17 00:00 96.4 92 19 133/62 98 Room Air 09/25/17 19:08 96.8 77 20 125/67 93 Room Air 09/25/17 16:00 98.1 86 20 122/69 95 Room Air Objective General Appearance: no apparent distress, alert Lines, tubes and drains: peripheral HEENT: normocephalic, atraumatic, anicteric, mucous membranes moist Neck: non-tender, supple Respiratory/Chest: lungs clear - with moderate air entry , no respiratory distress, no accessory muscle use Cardiovascular/Chest: normal rate, regular rhythm, no JVD Abdomen: normal bowel sounds, non tender, soft Extremities: non-tender, no calf tenderness Neurologic: stitch separator II-XII grossly normal, alert, responsive, normal mood/affect Musculoskeletal: atrophy - BLE Microbiology Date/Time Source Procedure Growth Status 09/24/17 23:34 Blood Blood Culture - Preliminary NO GROWTH AFTER 24 HOURS Resulted 09/24/17 23:03 Blood Blood Culture - Preliminary NO GROWTH AFTER 24 HOURS Resulted 09/24/17 21:00 Urine,Clean Catch Urine Culture - Preliminary Gram Negative Odilon Resulted Current Medications Medications (Trade) Dose Ordered Sig/Gemma Route PRN Reason Start Time Stop Time Status Last Admin Dose Admin Acetaminophen (Tylenol) 650 mg Q4H PRN ORAL fever 09/24/17 22:30 10/24/17 22:29 09/25/17 17:48 Albuterol/ Ipratropium (Albuterol/ Ipratropium) 3 ml Q4H PRN HHN Shortness of Breath 09/24/17 22:30 09/29/17 22:29 Cefepime HCl 2 gm/ Dextrose 55 ml @ 110 mls/hr Q24H IV 09/25/17 09:00 10/02/17 08:59 09/25/17 08:25 Dextrose (Dextrose 50%) STAT PRN IV Hypoglycemia 09/24/17 22:30 10/24/17 22:29 Escitalopram Oxalate (Lexapro) 10 mg DAILY ORAL 09/26/17 09:00 10/26/17 08:59 Heparin Sodium (Porcine) (Heparin 5000 units/ml) 5,000 units EVERY 12 HOURS SUBQ 09/25/17 09:00 10/25/17 08:59 Insulin Aspart (NovoLOG) BEFORE MEALS AND HS SUBQ 09/25/17 06:30 10/25/17 06:29 Morphine Sulfate (Morphine Sulfate) 2 mg Q4H PRN IVP Moderate Pain (Pain Scale 4-6) 09/24/17 22:30 10/01/17 22:29 Ondansetron HCl (Zofran) 4 mg Q6H PRN IVP Nausea & Vomiting 09/24/17 22:30 10/24/17 22:29 Phenazopyridine HCl (Pyridium) 100 mg DAILY PRN ORAL dysuria 09/24/17 22:30 10/24/17 22:29 Polyethylene Glycol (Miralax) 17 gm DAILYPRN PRN ORAL Constipation 09/24/17 22:30 10/24/17 22:29 Temazepam (Restoril) 15 mg HSPRN PRN ORAL Insomnia 09/24/17 22:30 10/01/17 22:29 Viki Donato NP (Vanchtein) Sep 26, 2017 13:19
--- NOTE | 2017-09-26 15:01 | Internal Med Progress Note ---
Subjective Physician Name Arnel Wagner Attending Physician Arnel Wagner MD Current Medications Medications (Trade) Dose Ordered Sig/Gemma Route PRN Reason Start Time Stop Time Status Last Admin Dose Admin Acetaminophen (Tylenol) 650 mg Q4H PRN ORAL fever 09/24/17 22:30 10/24/17 22:29 09/25/17 17:48 Albuterol/ Ipratropium (Albuterol/ Ipratropium) 3 ml Q4H PRN HHN Shortness of Breath 09/24/17 22:30 09/29/17 22:29 Cefepime HCl 2 gm/ Dextrose 55 ml @ 110 mls/hr Q24H IV 09/25/17 09:00 10/02/17 08:59 09/25/17 08:25 Dextrose (Dextrose 50%) STAT PRN IV Hypoglycemia 09/24/17 22:30 10/24/17 22:29 Escitalopram Oxalate (Lexapro) 10 mg DAILY ORAL 09/26/17 09:00 10/26/17 08:59 Heparin Sodium (Porcine) (Heparin 5000 units/ml) 5,000 units EVERY 12 HOURS SUBQ 09/25/17 09:00 10/25/17 08:59 Insulin Aspart (NovoLOG) BEFORE MEALS AND HS SUBQ 09/25/17 06:30 10/25/17 06:29 Morphine Sulfate (Morphine Sulfate) 2 mg Q4H PRN IVP Moderate Pain (Pain Scale 4-6) 09/24/17 22:30 10/01/17 22:29 Ondansetron HCl (Zofran) 4 mg Q6H PRN IVP Nausea & Vomiting 09/24/17 22:30 10/24/17 22:29 Phenazopyridine HCl (Pyridium) 100 mg DAILY PRN ORAL dysuria 09/24/17 22:30 10/24/17 22:29 Polyethylene Glycol (Miralax) 17 gm DAILYPRN PRN ORAL Constipation 09/24/17 22:30 10/24/17 22:29 Temazepam (Restoril) 15 mg HSPRN PRN ORAL Insomnia 09/24/17 22:30 10/01/17 22:29 Allergies: Coded Allergies: TETRACYCLINE (Verified Allergy, Unknown, 09/24/17) Subjective awake, alert, responsive, NAD, No CP or SOB, C/O Dysuria Objective Last Vital Signs Date Time Temp Pulse Resp B/P (MAP) Pulse Ox O2 Delivery O2 Flow Rate FiO2 09/26/17 12:06 97.8 86 18 144/79 95 Room Air Microbiology Date/Time Source Procedure Growth Status 09/24/17 23:34 Blood Blood Culture - Preliminary NO GROWTH AFTER 24 HOURS Resulted 09/24/17 23:03 Blood Blood Culture - Preliminary NO GROWTH AFTER 24 HOURS Resulted 09/24/17 21:00 Urine,Clean Catch Urine Culture - Preliminary Gram Negative Odilon Resulted Intake and Output 09/26/17 09/27/17 19:00 07:00 Intake Total 480 ml Balance 480 ml Intake Oral 480 ml # Voids 2 Objective General: No acute distress, awake and alert HEENT: NCAT, sclera anicteric, PERRL, EOMI. Neck: Supple, no significant jugular venous distention, Lungs: Good inspiratory effort, clear to auscultation bilaterally, no Wheeze or Rales. Heart: Regular rate and rhythm, normal S1/S2, no murmurs Abdomen: soft, nontender, nondistended. Normoactive bowel sounds. / Rectal: Refused and deferred. Extremities: No Cyanosis , clubbing or edema. Neuro: A&O x 3, Able to move all extremities Skin: warm, no rashes or lesions Psych: Normal mood and affect Assessment/Plan Assessment/Plan Probable recurrent complicated GNR UTI - UCx pending History prior K.pneumoniae UTI History of neurogenic bladder, retention SP surgery Generalized weakness DM2 CAD Plan: Abx: Cefepime, DC Vanco IV Monitor Labs and cultures. Monitor BS Ambulation Full code Arnel Wagner MD Sep 26, 2017 15:01
[2017-09-27] MEDS ORDERED: Vancomycin 750mg/NS 250ml 250 ML IVPB SCH (01:00)
[2017-09-27 04:00] VITALS: BP 120/57
[2017-09-27] MEDS: NovoLOG Insulin Flexpen SUBQ SCH ×4 (06:30→21:00)
[2017-09-27 07:42] LABS: ANION GAP 8 mmol/L (5-15); CALCIUM 8.7 MG/DL (8.5-10.1); CARBON DIOXIDE 26 MMOL/L (21-32); CHLORIDE 105 MMOL/L (98-107); CREATININE 0.7 MG/DL (0.55-1.30); POTASSIUM 3.8 MMOL/L (3.5-5.1); SODIUM 139 MMOL/L (136-145)
[2017-09-27 07:43] LABS: BASOPHILS % (AUTO) 1.4 % (0.0-2.0); LYMPHOCYTES % (AUTO) 24.9 % (20.0-45.0); MEAN CORPUSCULAR HEMOGLOBIN 32.7 PG (27.0-31.0); MEAN CORPUSCULAR HGB CONC 34.9 G/DL (32.0-36.0); MEAN CORPUSCULAR VOLUME 94 FL (80-99); MEAN PLATELET VOLUME 5.6 FL (6.5-10.1); MONOCYTES % (AUTO) 10.5 % (1.0-10.0); NEUTROPHILS % (AUTO) 57.2 % (45.0-75.0); PLATELET COUNT 215 K/UL (150-450); RED BLOOD COUNT 3.64 M/UL (4.20-5.40); WHITE BLOOD COUNT 5.6 K/UL (4.8-10.8)
[2017-09-27 08:00] VITALS: BP 154/73
[2017-09-27] MEDS: Ciprofloxacin 500mg tab ORAL SCH ×2 (08:38→22:57)
[2017-09-27 08:43] LABS: HEMOGLOBIN A1C 9.2 % (4.3-6.0)
[2017-09-27] MEDS: Heparin 5000 units/ml inj SUBQ SCH ×2 (08:43→21:00)
[2017-09-27] MEDS: Cefepime HCl 2 GM in D5W 55 ML IV SCH (09:00)
[2017-09-27] MEDS ORDERED: NS 275ml ONE (10:27)
[2017-09-27 12:00] VITALS: BP 145/74
--- NOTE | 2017-09-27 12:59 | Pulmonology Progress Note ---
Assessment/Plan Assessment/Plan ASSESSMENT complicated UTI with Klebsiella Recurrent UTIs Hx of bladder surgery hx of urinary retention anemia possible protein calorie malnutrition DM COPD CAD PLAN OF CARE MS floor abx urine cx + Klebsiella PNA ID follows BS management with SS of insulin, [id number], need further optimization of BS regimen as outpatient monitor HH O2 HHN prn DVT prophylaxis pain management diet as tolerated a/emetic prn symptomatic Rx dc plan with input from ID re abx regimen in SNF case discussed and evaluated by supervising physician Subjective Allergies: Coded Allergies: TETRACYCLINE (Verified Allergy, Unknown, 09/24/17) Subjective afebrile, no leukocytosis urine cx + Klebsiella PNA Objective Last 24 Hour Vital Signs Date Time Temp Pulse Resp B/P (MAP) Pulse Ox O2 Delivery O2 Flow Rate FiO2 09/27/17 12:00 97.9 86 19 145/74 93 Room Air 09/27/17 08:00 97.5 79 18 154/73 98 Room Air 09/27/17 07:29 77 18 Room Air 09/27/17 04:00 97.8 78 18 120/57 100 Room Air 09/26/17 23:22 97.7 86 20 124/70 96 Room Air 09/26/17 19:10 97.5 86 20 125/63 96 Room Air 09/26/17 15:29 97.7 89 18 150/73 97 Room Air Objective General Appearance: no apparent distress, alert Lines, tubes and drains: peripheral HEENT: normocephalic, atraumatic, anicteric, mucous membranes moist Neck: non-tender, supple Respiratory/Chest: lungs clear - with moderate air entry , no respiratory distress, no accessory muscle use Cardiovascular/Chest: normal rate, regular rhythm, no JVD Abdomen: normal bowel sounds, non tender, soft Extremities: non-tender, no calf tenderness 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 Complete 09/24/17 21:00 Urine,Clean Catch Urine Culture - Final Klebsiella Pneumoniae Complete 09/25/17 15:20 Rectum VRE Culture - Final Enterococcus Faecalis - Vre Complete Laboratory Tests 09/27/17 06:30: White Blood Count 5.6, Red Blood Count 3.64L, Hemoglobin 11.9L, Hematocrit 34.1L , Mean Corpuscular Volume 94, Mean Corpuscular Hemoglobin 32.7H, Mean Corpuscular Hemoglobin Concent 34.9, Red Cell Distribution Width 12.0, Platelet Count 215, Mean Platelet Volume 5.6L, Neutrophils (%) (Auto) 57.2, Lymphocytes ( %) (Auto) 24.9, Monocytes (%) (Auto) 10.5H, Eosinophils (%) (Auto) 6.0H, Basophils (%) (Auto) 1.4, Sodium Level 139, Potassium Level 3.8, Chloride Level 105, Carbon Dioxide Level 26, Anion Gap 8, Blood Urea Nitrogen 14, Creatinine 0.7, Estimat Glomerular Filtration Rate , Glucose Level 157H, Hemoglobin A1c 9.2H, Calcium Level 8.7 Current Medications Medications (Trade) Dose Ordered Sig/Gemma Route PRN Reason Start Time Stop Time Status Last Admin Dose Admin Acetaminophen (Tylenol) 650 mg Q4H PRN ORAL fever 09/24/17 22:30 10/24/17 22:29 09/25/17 17:48 Albuterol/ Ipratropium (Albuterol/ Ipratropium) 3 ml Q4H PRN HHN Shortness of Breath 09/24/17 22:30 09/29/17 22:29 Cefepime HCl 2 gm/ Dextrose 55 ml @ 110 mls/hr Q24H IV 09/25/17 09:00 10/02/17 08:59 09/25/17 08:25 Ciprofloxacin (Cipro 500mg tab) 500 mg EVERY 12 HOURS ORAL 09/27/17 09:00 10/04/17 08:59 09/27/17 08:38 Dextrose (Dextrose 50%) STAT PRN IV Hypoglycemia 09/24/17 22:30 10/24/17 22:29 Escitalopram Oxalate (Lexapro) 10 mg DAILY ORAL 09/26/17 09:00 10/26/17 08:59 09/27/17 08:38 Heparin Sodium (Porcine) (Heparin 5000 units/ml) 5,000 units EVERY 12 HOURS SUBQ 09/25/17 09:00 10/25/17 08:59 09/27/17 08:43 Insulin Aspart (NovoLOG) BEFORE MEALS AND HS SUBQ 09/25/17 06:30 10/25/17 06:29 Morphine Sulfate (Morphine Sulfate) 2 mg Q4H PRN IVP Moderate Pain (Pain Scale 4-6) 09/24/17 22:30 10/01/17 22:29 Ondansetron HCl (Zofran) 4 mg Q6H PRN IVP Nausea & Vomiting 09/24/17 22:30 10/24/17 22:29 Phenazopyridine HCl (Pyridium) 100 mg DAILY PRN ORAL dysuria 09/24/17 22:30 10/24/17 22:29 Polyethylene Glycol (Miralax) 17 gm DAILYPRN PRN ORAL Constipation 09/24/17 22:30 10/24/17 22:29 Temazepam (Restoril) 15 mg HSPRN PRN ORAL Insomnia 09/24/17 22:30 10/01/17 22:29 Tanmay BarriosViki vargas NP Sep 27, 2017 12:59
[2017-09-27] MEDS ORDERED: Sennosides 8.6mg ORAL PRN (15:00)
--- NOTE | 2017-09-27 15:12 | Internal Med Progress Note ---
Subjective Physician Name Arnel Wagner Attending Physician Arnel Wagner MD Current Medications Medications (Trade) Dose Ordered Sig/Gemma Route PRN Reason Start Time Stop Time Status Last Admin Dose Admin Acetaminophen (Tylenol) 650 mg Q4H PRN ORAL fever 09/24/17 22:30 10/24/17 22:29 09/25/17 17:48 Albuterol/ Ipratropium (Albuterol/ Ipratropium) 3 ml Q4H PRN HHN Shortness of Breath 09/24/17 22:30 09/29/17 22:29 Ciprofloxacin (Cipro 500mg tab) 500 mg EVERY 12 HOURS ORAL 09/27/17 09:00 10/04/17 08:59 09/27/17 08:38 Dextrose (Dextrose 50%) STAT PRN IV Hypoglycemia 09/24/17 22:30 10/24/17 22:29 Escitalopram Oxalate (Lexapro) 10 mg DAILY ORAL 09/26/17 09:00 10/26/17 08:59 09/27/17 08:38 Heparin Sodium (Porcine) (Heparin 5000 units/ml) 5,000 units EVERY 12 HOURS SUBQ 09/25/17 09:00 10/25/17 08:59 09/27/17 08:43 Insulin Aspart (NovoLOG) BEFORE MEALS AND HS SUBQ 09/25/17 06:30 10/25/17 06:29 Morphine Sulfate (Morphine Sulfate) 2 mg Q4H PRN IVP Moderate Pain (Pain Scale 4-6) 09/24/17 22:30 10/01/17 22:29 Ondansetron HCl (Zofran) 4 mg Q6H PRN IVP Nausea & Vomiting 09/24/17 22:30 10/24/17 22:29 Phenazopyridine HCl (Pyridium) 100 mg DAILY PRN ORAL dysuria 09/24/17 22:30 10/24/17 22:29 Polyethylene Glycol (Miralax) 17 gm DAILYPRN PRN ORAL Constipation 09/24/17 22:30 10/24/17 22:29 Sennosides (Senokot) 8.6 mg DAILYPRN PRN ORAL Constipation 09/27/17 15:00 10/27/17 14:59 Temazepam (Restoril) 15 mg HSPRN PRN ORAL Insomnia 09/24/17 22:30 10/01/17 22:29 Allergies: Coded Allergies: TETRACYCLINE (Verified Allergy, Unknown, 09/24/17) Subjective awake, alert, responsive, NAD, No CP or SOB, anxious to leave. Objective Last Vital Signs Date Time Temp Pulse Resp B/P (MAP) Pulse Ox O2 Delivery O2 Flow Rate FiO2 09/27/17 12:00 97.9 86 19 145/74 93 Room Air Laboratory Tests Test 09/27/17 06:30 White Blood Count 5.6 K/UL (4.8-10.8) Red Blood Count 3.64 M/UL (4.20-5.40) L Hemoglobin 11.9 G/DL (12.0-16.0) L Hematocrit 34.1 % (37.0-47.0) L Mean Corpuscular Volume 94 FL (80-99) Mean Corpuscular Hemoglobin 32.7 PG (27.0-31.0) H Mean Corpuscular Hemoglobin Concent 34.9 G/DL (32.0-36.0) Red Cell Distribution Width 12.0 % (11.6-14.8) Platelet Count 215 K/UL (150-450) Mean Platelet Volume 5.6 FL (6.5-10.1) L Neutrophils (%) (Auto) 57.2 % (45.0-75.0) Lymphocytes (%) (Auto) 24.9 % (20.0-45.0) Monocytes (%) (Auto) 10.5 % (1.0-10.0) H Eosinophils (%) (Auto) 6.0 % (0.0-3.0) H Basophils (%) (Auto) 1.4 % (0.0-2.0) Sodium Level 139 MMOL/L (136-145) Potassium Level 3.8 MMOL/L (3.5-5.1) Chloride Level 105 MMOL/L (98-107) Carbon Dioxide Level 26 MMOL/L (21-32) Anion Gap 8 mmol/L (5-15) Blood Urea Nitrogen 14 mg/dL (7-18) Creatinine 0.7 MG/DL (0.55-1.30) Estimat Glomerular Filtration Rate mL/min (>60) Glucose Level 157 MG/DL (74-106) H Hemoglobin A1c 9.2 % (4.3-6.0) H Calcium Level 8.7 MG/DL (8.5-10.1) Microbiology Date/Time Source Procedure Growth Status 09/24/17 23:34 Blood Blood Culture - Preliminary NO GROWTH AFTER 48 HOURS Resulted 09/24/17 23:03 Blood Blood Culture - Preliminary NO GROWTH AFTER 48 HOURS Resulted 09/25/17 15:20 Nasal Nares MRSA Culture - Final NO METHICILLIN RESISTANT STAPH AUREUS... Complete 09/24/17 21:00 Urine,Clean Catch Urine Culture - Final Klebsiella Pneumoniae Complete 09/25/17 15:20 Rectum VRE Culture - Final Enterococcus Faecalis - Vre Complete Objective General: No acute distress, awake and alert HEENT: NCAT, sclera anicteric, PERRL, EOMI. Neck: Supple, no significant jugular venous distention, Lungs: Good inspiratory effort, clear to auscultation bilaterally, no Wheeze or Rales. Heart: Regular rate and rhythm, normal S1/S2, no murmurs Abdomen: soft, nontender, nondistended. Normoactive bowel sounds. / Rectal: Refused and deferred. Extremities: No Cyanosis , clubbing or edema. 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 boarding care Arnel Wagner MD Sep 27, 2017 15:12
[2017-09-27 16:00] VITALS: BP 132/68
[2017-09-27 19:14] VITALS: BP 126/58
[2017-09-27 23:18] VITALS: BP 158/69
--- NOTE | 2017-09-27 23:54 | General Progress Note ---
Subjective Date patient seen: Sep 27, 2017 Allergies: Coded Allergies: TETRACYCLINE (Verified Allergy, Unknown, 09/24/17) Objective Last 24 Hour Vital Signs Date Time Temp Pulse Resp B/P (MAP) Pulse Ox O2 Delivery O2 Flow Rate FiO2 09/27/17 23:18 97.5 81 20 158/69 96 Room Air 09/27/17 19:14 98.2 83 20 126/58 97 Room Air 09/27/17 19:00 72 18 Room Air 09/27/17 16:00 97.5 78 19 132/68 96 Room Air 09/27/17 12:00 97.9 86 19 145/74 93 Room Air 09/27/17 08:00 97.5 79 18 154/73 98 Room Air 09/27/17 07:29 77 18 Room Air 09/27/17 04:00 97.8 78 18 120/57 100 Room Air Intake and Output 09/27/17 09/28/17 19:00 07:00 Intake Total 480 ml Balance 480 ml Intake Oral 480 ml # Voids 5 # Bowel Movements 1 Laboratory Tests 09/27/17 06:30: White Blood Count 5.6, Red Blood Count 3.64L, Hemoglobin 11.9L, Hematocrit 34.1L , Mean Corpuscular Volume 94, Mean Corpuscular Hemoglobin 32.7H, Mean Corpuscular Hemoglobin Concent 34.9, Red Cell Distribution Width 12.0, Platelet Count 215, Mean Platelet Volume 5.6L, Neutrophils (%) (Auto) 57.2, Lymphocytes ( %) (Auto) 24.9, Monocytes (%) (Auto) 10.5H, Eosinophils (%) (Auto) 6.0H, Basophils (%) (Auto) 1.4, Sodium Level 139, Potassium Level 3.8, Chloride Level 105, Carbon Dioxide Level 26, Anion Gap 8, Blood Urea Nitrogen 14, Creatinine 0.7, Estimat Glomerular Filtration Rate , Glucose Level 157H, Hemoglobin A1c 9.2H, Calcium Level 8.7 Height (Feet): 5 Height (Inches): 3.00 Weight (Pounds): 133 Hazel Watters M.D. Sep 27, 2017 23:54
--- NOTE | 2017-09-27 23:54 | Geriatric Progress Note ---
Subjective Interval Events 09/26/17 Geriatric Geriatric Last 24 Hour Vital Signs Date Time Temp Pulse Resp B/P (MAP) Pulse Ox O2 Delivery O2 Flow Rate FiO2 09/27/17 23:18 97.5 81 20 158/69 96 Room Air 09/27/17 19:14 98.2 83 20 126/58 97 Room Air 09/27/17 19:00 72 18 Room Air 09/27/17 16:00 97.5 78 19 132/68 96 Room Air 09/27/17 12:00 97.9 86 19 145/74 93 Room Air 09/27/17 08:00 97.5 79 18 154/73 98 Room Air 09/27/17 07:29 77 18 Room Air 09/27/17 04:00 97.8 78 18 120/57 100 Room Air Intake and Output 09/27/17 09/28/17 19:00 07:00 Intake Total 480 ml Balance 480 ml Intake Oral 480 ml # Voids 5 # Bowel Movements 1 Laboratory Tests Test 09/27/17 06:30 White Blood Count 5.6 K/UL (4.8-10.8) Red Blood Count 3.64 M/UL (4.20-5.40) L Hemoglobin 11.9 G/DL (12.0-16.0) L Hematocrit 34.1 % (37.0-47.0) L Mean Corpuscular Volume 94 FL (80-99) Mean Corpuscular Hemoglobin 32.7 PG (27.0-31.0) H Mean Corpuscular Hemoglobin Concent 34.9 G/DL (32.0-36.0) Red Cell Distribution Width 12.0 % (11.6-14.8) Platelet Count 215 K/UL (150-450) Mean Platelet Volume 5.6 FL (6.5-10.1) L Neutrophils (%) (Auto) 57.2 % (45.0-75.0) Lymphocytes (%) (Auto) 24.9 % (20.0-45.0) Monocytes (%) (Auto) 10.5 % (1.0-10.0) H Eosinophils (%) (Auto) 6.0 % (0.0-3.0) H Basophils (%) (Auto) 1.4 % (0.0-2.0) Sodium Level 139 MMOL/L (136-145) Potassium Level 3.8 MMOL/L (3.5-5.1) Chloride Level 105 MMOL/L (98-107) Carbon Dioxide Level 26 MMOL/L (21-32) Anion Gap 8 mmol/L (5-15) Blood Urea Nitrogen 14 mg/dL (7-18) Creatinine 0.7 MG/DL (0.55-1.30) Estimat Glomerular Filtration Rate mL/min (>60) Glucose Level 157 MG/DL (74-106) H Hemoglobin A1c 9.2 % (4.3-6.0) H Calcium Level 8.7 MG/DL (8.5-10.1) Current Medications Medications (Trade) Dose Ordered Sig/Gemma Route PRN Reason Start Time Stop Time Status Last Admin Dose Admin Acetaminophen (Tylenol) 650 mg Q4H PRN ORAL fever 09/24/17 22:30 10/24/17 22:29 09/25/17 17:48 Albuterol/ Ipratropium (Albuterol/ Ipratropium) 3 ml Q4H PRN HHN Shortness of Breath 09/24/17 22:30 09/29/17 22:29 Ciprofloxacin (Cipro 500mg tab) 500 mg EVERY 12 HOURS ORAL 09/27/17 09:00 10/04/17 08:59 09/27/17 22:57 Dextrose (Dextrose 50%) STAT PRN IV Hypoglycemia 09/24/17 22:30 10/24/17 22:29 Escitalopram Oxalate (Lexapro) 10 mg DAILY ORAL 09/26/17 09:00 10/26/17 08:59 09/27/17 08:38 Heparin Sodium (Porcine) (Heparin 5000 units/ml) 5,000 units EVERY 12 HOURS SUBQ 09/25/17 09:00 10/25/17 08:59 09/27/17 08:43 Insulin Aspart (NovoLOG) BEFORE MEALS AND HS SUBQ 09/25/17 06:30 10/25/17 06:29 Morphine Sulfate (Morphine Sulfate) 2 mg Q4H PRN IVP Moderate Pain (Pain Scale 4-6) 09/24/17 22:30 10/01/17 22:29 Ondansetron HCl (Zofran) 4 mg Q6H PRN IVP Nausea & Vomiting 09/24/17 22:30 10/24/17 22:29 Phenazopyridine HCl (Pyridium) 100 mg DAILY PRN ORAL dysuria 09/24/17 22:30 10/24/17 22:29 Polyethylene Glycol (Miralax) 17 gm DAILYPRN PRN ORAL Constipation 09/24/17 22:30 10/24/17 22:29 Sennosides (Senokot) 8.6 mg DAILYPRN PRN ORAL Constipation 09/27/17 15:00 10/27/17 14:59 Temazepam (Restoril) 15 mg HSPRN PRN ORAL Insomnia 09/24/17 22:30 10/01/17 22:29 Height (Feet): 5 Height (Inches): 3.00 Weight (Pounds): 133 Hazel Watters M.D. Sep 27, 2017 23:54
[2017-09-28 04:00] VITALS: BP 119/59
[2017-09-28] MEDS: NovoLOG Insulin Flexpen SUBQ SCH ×4 (06:30→21:00)
[2017-09-28 08:00] VITALS: BP 135/75
[2017-09-28] MEDS: Ciprofloxacin 500mg tab ORAL SCH ×2 (09:31→20:52)
[2017-09-28] MEDS: Heparin 5000 units/ml inj SUBQ SCH ×2 (09:32→21:01)
--- NOTE | 2017-09-28 10:18 | Infectious Diseases Prog Note ---
Assessment/Plan Assessment/Plan ASSESSMENT: 82 y/o female with: // Probable recurrent complicated UTI - UCx>100K K. pna (S ancef, cipro/levo, bactrim; R amp, I nitrofurantoin) -Bcx NTD - h/o K.pneumoniae - h/o neurogenic bladder, retention SP surgery // Afebrile without leukocytosis // Generalized weakness // DM2 with hyperglycemia // h/o CAD // [facility] resident // TCA allergy // Full Code PLAN: - continue PO Cipro abx d# 4/10 -09/27 SP IV Cefepime #3 -09/26 SP IV Vancomycin #2 - check renal US - f/u cultures - monitor CBC, temperatures - monitor BMP Subjective Allergies: Coded Allergies: TETRACYCLINE (Verified Allergy, Unknown, 09/24/17) Subjective afebrile no leukocytosis Bcx NTD Objective Vital Signs Last 24 Hour Vital Signs Date Time Temp Pulse Resp B/P (MAP) Pulse Ox O2 Delivery O2 Flow Rate FiO2 09/28/17 08:00 97.6 77 19 135/75 96 Room Air 09/28/17 04:00 98.1 59 20 119/59 95 Room Air 09/27/17 23:18 97.5 81 20 158/69 96 Room Air 09/27/17 19:14 98.2 83 20 126/58 97 Room Air 09/27/17 19:00 72 18 Room Air 09/27/17 16:00 97.5 78 19 132/68 96 Room Air 09/27/17 12:00 97.9 86 19 145/74 93 Room Air Height (Feet): 5 Height (Inches): 3.00 Weight (Pounds): 133 Objective General Appearance: no apparent distress, alert Lines, tubes and drains: peripheral HEENT: normocephalic, atraumatic, anicteric, mucous membranes moist Neck: non-tender, supple Respiratory/Chest: lungs clear - with moderate air entry , no respiratory distress, no accessory muscle use Cardiovascular/Chest: normal rate, regular rhythm, no JVD Abdomen: normal bowel sounds, non tender, soft Extremities: non-tender, no calf tenderness 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 Complete 09/25/17 15:20 Rectum VRE Culture - Final Enterococcus Faecalis - Vre Complete Current Medications Medications (Trade) Dose Ordered Sig/Gemma Route PRN Reason Start Time Stop Time Status Last Admin Dose Admin Acetaminophen (Tylenol) 650 mg Q4H PRN ORAL fever 09/24/17 22:30 10/24/17 22:29 09/28/17 00:18 Albuterol/ Ipratropium (Albuterol/ Ipratropium) 3 ml Q4H PRN HHN Shortness of Breath 09/24/17 22:30 09/29/17 22:29 Ciprofloxacin (Cipro 500mg tab) 500 mg EVERY 12 HOURS ORAL 09/27/17 09:00 10/04/17 08:59 09/28/17 09:31 Dextrose (Dextrose 50%) STAT PRN IV Hypoglycemia 09/24/17 22:30 10/24/17 22:29 Escitalopram Oxalate (Lexapro) 10 mg DAILY ORAL 09/26/17 09:00 10/26/17 08:59 09/27/17 08:38 Heparin Sodium (Porcine) (Heparin 5000 units/ml) 5,000 units EVERY 12 HOURS SUBQ 09/25/17 09:00 10/25/17 08:59 09/28/17 09:32 Insulin Aspart (NovoLOG) BEFORE MEALS AND HS SUBQ 09/25/17 06:30 10/25/17 06:29 Morphine Sulfate (Morphine Sulfate) 2 mg Q4H PRN IVP Moderate Pain (Pain Scale 4-6) 09/24/17 22:30 10/01/17 22:29 Ondansetron HCl (Zofran) 4 mg Q6H PRN IVP Nausea & Vomiting 09/24/17 22:30 10/24/17 22:29 Phenazopyridine HCl (Pyridium) 100 mg DAILY PRN ORAL dysuria 09/24/17 22:30 10/24/17 22:29 Polyethylene Glycol (Miralax) 17 gm DAILYPRN PRN ORAL Constipation 09/24/17 22:30 10/24/17 22:29 Sennosides (Senokot) 8.6 mg DAILYPRN PRN ORAL Constipation 09/27/17 15:00 10/27/17 14:59 Temazepam (Restoril) 15 mg HSPRN PRN ORAL Insomnia 09/24/17 22:30 10/01/17 22:29 Merissa Jeffries M.D. Sep 28, 2017 10:18
[2017-09-28 12:00] VITALS: BP 140/71
--- NOTE | 2017-09-28 15:05 | Pulmonology Progress Note ---
Assessment/Plan Problems: (1) Complicated UTI (urinary tract infection) (2) Diabetes (3) Generalized weakness Assessment/Plan on cipro now sliding scale symptomatic treatment dc planning in progress Subjective ROS Limited/Unobtainable: No Constitutional: Reports: no symptoms HEENT: Repors: no symptoms Respiratory: Reports: no symptoms Allergies: Coded Allergies: TETRACYCLINE (Verified Allergy, Unknown, 09/24/17) Objective Last 24 Hour Vital Signs Date Time Temp Pulse Resp B/P (MAP) Pulse Ox O2 Delivery O2 Flow Rate FiO2 09/28/17 12:00 98.6 76 18 140/71 97 Room Air 09/28/17 08:00 97.6 77 19 135/75 96 Room Air 09/28/17 07:30 91 18 Room Air 09/28/17 04:00 98.1 59 20 119/59 95 Room Air 09/27/17 23:18 97.5 81 20 158/69 96 Room Air 09/27/17 19:14 98.2 83 20 126/58 97 Room Air 09/27/17 19:00 72 18 Room Air 09/27/17 16:00 97.5 78 19 132/68 96 Room Air Intake and Output 09/28/17 09/29/17 19:00 07:00 Intake Total 480 ml Balance 480 ml Intake Oral 480 ml # Voids 1 General Appearance: WD/WN HEENT: normocephalic, anicteric Respiratory/Chest: chest wall non-tender, lungs clear Breasts: no masses Cardiovascular: normal peripheral pulses Abdomen: normal bowel sounds, soft, non tender Extremities: no cyanosis Skin: no rash, no lesions Microbiology Date/Time Source Procedure Growth Status 09/25/17 15:20 Nasal Nares MRSA Culture - Final NO METHICILLIN RESISTANT STAPH AUREUS... Complete 09/25/17 15:20 Rectum VRE Culture - Final Enterococcus Faecalis - Vre Complete Current Medications Medications (Trade) Dose Ordered Sig/Gemma Route PRN Reason Start Time Stop Time Status Last Admin Dose Admin Acetaminophen (Tylenol) 650 mg Q4H PRN ORAL fever 09/24/17 22:30 10/24/17 22:29 09/28/17 00:18 Albuterol/ Ipratropium (Albuterol/ Ipratropium) 3 ml Q4H PRN HHN Shortness of Breath 09/24/17 22:30 09/29/17 22:29 Ciprofloxacin (Cipro 500mg tab) 500 mg EVERY 12 HOURS ORAL 09/27/17 09:00 10/04/17 08:59 09/28/17 09:31 Dextrose (Dextrose 50%) STAT PRN IV Hypoglycemia 09/24/17 22:30 10/24/17 22:29 Escitalopram Oxalate (Lexapro) 10 mg DAILY ORAL 09/26/17 09:00 10/26/17 08:59 09/27/17 08:38 Heparin Sodium (Porcine) (Heparin 5000 units/ml) 5,000 units EVERY 12 HOURS SUBQ 09/25/17 09:00 10/25/17 08:59 09/28/17 09:32 Insulin Aspart (NovoLOG) BEFORE MEALS AND HS SUBQ 09/25/17 06:30 10/25/17 06:29 09/28/17 12:10 Morphine Sulfate (Morphine Sulfate) 2 mg Q4H PRN IVP Moderate Pain (Pain Scale 4-6) 09/24/17 22:30 10/01/17 22:29 Ondansetron HCl (Zofran) 4 mg Q6H PRN IVP Nausea & Vomiting 09/24/17 22:30 10/24/17 22:29 Phenazopyridine HCl (Pyridium) 100 mg DAILY PRN ORAL dysuria 09/24/17 22:30 10/24/17 22:29 Polyethylene Glycol (Miralax) 17 gm DAILYPRN PRN ORAL Constipation 09/24/17 22:30 10/24/17 22:29 Sennosides (Senokot) 8.6 mg DAILYPRN PRN ORAL Constipation 09/27/17 15:00 10/27/17 14:59 Temazepam (Restoril) 15 mg HSPRN PRN ORAL Insomnia 09/24/17 22:30 10/01/17 22:29 DULCE DOMINGO Sep 28, 2017 15:05
[2017-09-28 16:00] VITALS: BP 127/72
[2017-09-28] MEDS ORDERED: DAPTOMYCIN IV ONE (16:00)
[2017-09-28] MEDS ORDERED: NS IV ONE (16:00)
--- NOTE | 2017-09-28 19:28 | Internal Med Progress Note ---
Subjective Date of Service: Sep 28, 2017 Physician Name Jonh Casiano Attending Physician Arnel Wagner MD Current Medications Medications (Trade) Dose Ordered Sig/Gemma Route PRN Reason Start Time Stop Time Status Last Admin Dose Admin Acetaminophen (Tylenol) 650 mg Q4H PRN ORAL fever 09/24/17 22:30 10/24/17 22:29 09/28/17 00:18 Albuterol/ Ipratropium (Albuterol/ Ipratropium) 3 ml Q4H PRN HHN Shortness of Breath 09/24/17 22:30 09/29/17 22:29 Ciprofloxacin (Cipro 500mg tab) 500 mg EVERY 12 HOURS ORAL 09/27/17 09:00 10/04/17 08:59 09/28/17 09:31 Dextrose (Dextrose 50%) STAT PRN IV Hypoglycemia 09/24/17 22:30 10/24/17 22:29 Escitalopram Oxalate (Lexapro) 10 mg DAILY ORAL 09/26/17 09:00 10/26/17 08:59 09/27/17 08:38 Heparin Sodium (Porcine) (Heparin 5000 units/ml) 5,000 units EVERY 12 HOURS SUBQ 09/25/17 09:00 10/25/17 08:59 09/28/17 09:32 Insulin Aspart (NovoLOG) BEFORE MEALS AND HS SUBQ 09/25/17 06:30 10/25/17 06:29 09/28/17 18:01 Morphine Sulfate (Morphine Sulfate) 2 mg Q4H PRN IVP Moderate Pain (Pain Scale 4-6) 09/24/17 22:30 10/01/17 22:29 Ondansetron HCl (Zofran) 4 mg Q6H PRN IVP Nausea & Vomiting 09/24/17 22:30 10/24/17 22:29 Phenazopyridine HCl (Pyridium) 100 mg DAILY PRN ORAL dysuria 09/24/17 22:30 10/24/17 22:29 Polyethylene Glycol (Miralax) 17 gm DAILYPRN PRN ORAL Constipation 09/24/17 22:30 10/24/17 22:29 Sennosides (Senokot) 8.6 mg DAILYPRN PRN ORAL Constipation 09/27/17 15:00 10/27/17 14:59 Temazepam (Restoril) 15 mg HSPRN PRN ORAL Insomnia 09/24/17 22:30 10/01/17 22:29 Allergies: Coded Allergies: TETRACYCLINE (Verified Allergy, Unknown, 09/24/17) ROS Limited/Unobtainable: No Constitutional: Reports: no symptoms HEENT: Reports: no symptoms Cardiovascular: Reports: no symptoms Respiratory: Reports: no symptoms Gastrointestinal/Abdominal: Reports: no symptoms Genitourinary: Reports: no symptoms Neurologic/Psychiatric: Reports: no symptoms Subjective 82 YO F admitted with UTI. Now sepsis. Patient refused daptomycin IV. Cover for Int Med-Dr Wagner. Objective Last Vital Signs Date Time Temp Pulse Resp B/P (MAP) Pulse Ox O2 Delivery O2 Flow Rate FiO2 09/28/17 16:00 98.2 86 18 127/72 98 Room Air Intake and Output 09/28/17 09/29/17 19:00 07:00 Intake Total 720 ml Balance 720 ml Intake Oral 720 ml # Voids 1 Objective Objective General: No acute distress, awake and alert HEENT: NCAT, sclera anicteric, PERRL, EOMI. Neck: Supple, no significant jugular venous distention, Lungs: Good inspiratory effort, clear to auscultation bilaterally, no Wheeze or Rales. Heart: Regular rate and rhythm, normal S1/S2, no murmurs Abdomen: soft, nontender, nondistended. Normoactive bowel sounds. / Rectal: Refused and deferred. Extremities: No Cyanosis , clubbing or edema. Neuro: A&O x 3, Able to move all extremities Skin: warm, no rashes or lesions Psych: Normal mood and affect Assessment/Plan Problem List: (1) Neurogenic bladder (2) Diabetes mellitus, type II Assessment & Plan: Continue novolog (3) CAD (coronary artery disease) (4) UTI (urinary tract infection) Assessment & Plan: Klebsiella pneumo. Continue cipro per ID (5) Generalized weakness (6) Sepsis Assessment & Plan: Gram pos cocci. patient refused IV daptomycin-ID aware. Cont cipro; await ID and sens Status: not improved JONH CASIANO Sep 28, 2017 19:28
[2017-09-28 20:00] VITALS: BP 140/76
--- NOTE | 2017-09-28 20:52 | General Progress Note ---
Assessment/Plan Status: stable Assessment/Plan anxiety d/o the pt lacks capacity to make decisions the pt maybe administer another class of medication/antibiotics Subjective Date patient seen: Sep 28, 2017 Neurologic/Psychiatric: Reports: anxiety Allergies: Coded Allergies: TETRACYCLINE (Verified Allergy, Unknown, 09/24/17) Subjective the pt is illogical and lacks capacity to discuss meds/ the pt not able to process or appreciate the information given to her. Objective Last 24 Hour Vital Signs Date Time Temp Pulse Resp B/P (MAP) Pulse Ox O2 Delivery O2 Flow Rate FiO2 09/28/17 20:00 97.5 89 19 140/76 97 Room Air 09/28/17 16:00 98.2 86 18 127/72 98 Room Air 09/28/17 12:00 98.6 76 18 140/71 97 Room Air 09/28/17 08:00 97.6 77 19 135/75 96 Room Air 09/28/17 07:30 91 18 Room Air 09/28/17 04:00 98.1 59 20 119/59 95 Room Air 09/27/17 23:18 97.5 81 20 158/69 96 Room Air Intake and Output 09/28/17 09/29/17 19:00 07:00 Intake Total 720 ml Balance 720 ml Intake Oral 720 ml # Voids 1 Height (Feet): 5 Height (Inches): 3.00 Weight (Pounds): 133 General Appearance: no apparent distress, alert Neurologic: alert, oriented x 3, responsive, normal mood/affect Hazel Watters M.D. Sep 28, 2017 20:52
[2017-09-29] VITALS: BP 123/75
[2017-09-29 04:00] VITALS: BP 145/79
[2017-09-29] MEDS: NovoLOG Insulin Flexpen SUBQ SCH ×4 (06:28→20:00)
[2017-09-29 08:15] VITALS: BP 155/81
[2017-09-29] MEDS: Ciprofloxacin 500mg tab ORAL SCH ×2 (08:16→19:56)
[2017-09-29] MEDS: Heparin 5000 units/ml inj SUBQ SCH ×2 (09:00→20:00)
--- NOTE | 2017-09-29 10:26 | Infectious Diseases Prog Note ---
Assessment/Plan Assessment/Plan ASSESSMENT: 82 y/o female with: // Probable recurrent complicated UTI - UCx>100K K. pna (S ancef, cipro/levo, bactrim; R amp, I nitrofurantoin), on Rx -Renal US: Negative for hydronephrosis. Bladder diverticulum. Postvoid bladder volume 70 mL. - h/o K.pneumoniae - h/o neurogenic bladder, retention SP surgery //11/12 GP bacteremia- r/o contaminant vs real- patient refusing treatment -Bcx 09/24 11/12 GPC clusters (id and sensi pending); Bcx 09/28 pending // Afebrile without leukocytosis // Generalized weakness // DM2 with hyperglycemia // h/o CAD // NH resident // TCA allergy // Full Code PLAN: - continue PO Cipro abx d# 5/ and start IV Vancomycin pendign ID and sensi GPC and repeat Bdcx -09/27 SP IV Cefepime #3 -09/26 SP IV Vancomycin #2 - yesterday I've Recommended IV Vancomycin, Daptomycin or CEftaroline for GP bacteremia and explained to patient there is no PO alternative for gram positive bacteremia (Linezolid is bacteriostatic and not recommend for bacteremia); patient insisted on oral medication and asking in particular for micromycin( which is not available in the [place] and not indicated for gram positive bacteremia). Explained risk of untreated gram positive bacteremia. At this point, we don't now if bacteremia is a contaminant of a true bacteremia. Awaiting ID and repeat Bcx. After discussion, patient now agreeable to start IV Vancomycin and agrees to repeat Bcx. - f/u cultures - monitor CBC, temperatures - monitor BMP Discussed with RN. Subjective Allergies: Coded Allergies: TETRACYCLINE (Verified Allergy, Unknown, 09/24/17) Subjective afebrile no leukocytosis Bcx growing 11/12 GPC in clusters- however patient refused any IV abx- refused vancomycin, daptomycin or ceftaroline and only wanted to be given "Micromycin" ( which is not a real antibiotic) Objective Vital Signs Last 24 Hour Vital Signs Date Time Temp Pulse Resp B/P (MAP) Pulse Ox O2 Delivery O2 Flow Rate FiO2 09/29/17 08:15 98.2 93 21 155/81 97 Room Air 11/21/17 07:18 91 18 Room Air 09/29/17 04:00 96.8 77 20 145/79 96 Room Air 09/29/17 00:00 97.9 85 19 123/75 95 Room Air 09/28/17 20:00 97.5 89 19 140/76 97 Room Air 09/28/17 19:00 92 18 Room Air 09/28/17 16:00 98.2 86 18 127/72 98 Room Air 09/28/17 12:00 98.6 76 18 140/71 97 Room Air Height (Feet): 5 Height (Inches): 3.00 Weight (Pounds): 133 Objective General Appearance: no apparent distress, alert Lines, tubes and drains: peripheral HEENT: normocephalic, atraumatic, anicteric, mucous membranes moist Neck: non-tender, supple Respiratory/Chest: lungs clear - with moderate air entry , no respiratory distress, no accessory muscle use Cardiovascular/Chest: normal rate, regular rhythm, no JVD Abdomen: normal bowel sounds, non tender, soft Extremities: non-tender, no calf tenderness 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, alert, responsive, normal mood/affect Musculoskeletal: atrophy - BLE Current Medications Medications (Trade) Dose Ordered Sig/Gemma Route PRN Reason Start Time Stop Time Status Last Admin Dose Admin Acetaminophen (Tylenol) 650 mg Q4H PRN ORAL fever 09/24/17 22:30 10/24/17 22:29 09/28/17 00:18 Albuterol/ Ipratropium (Albuterol/ Ipratropium) 3 ml Q4H PRN HHN Shortness of Breath 09/24/17 22:30 09/29/17 22:29 Ciprofloxacin (Cipro 500mg tab) 500 mg EVERY 12 HOURS ORAL 09/27/17 09:00 10/04/17 08:59 09/29/17 08:16 Dextrose (Dextrose 50%) STAT PRN IV Hypoglycemia 09/24/17 22:30 10/24/17 22:29 Escitalopram Oxalate (Lexapro) 10 mg DAILY ORAL 09/26/17 09:00 10/26/17 08:59 09/27/17 08:38 Heparin Sodium (Porcine) (Heparin 5000 units/ml) 5,000 units EVERY 12 HOURS SUBQ 09/25/17 09:00 10/25/17 08:59 09/28/17 21:01 Insulin Aspart (NovoLOG) BEFORE MEALS AND HS SUBQ 09/25/17 06:30 10/25/17 06:29 09/28/17 18:01 Morphine Sulfate (Morphine Sulfate) 2 mg Q4H PRN IVP Moderate Pain (Pain Scale 4-6) 09/24/17 22:30 10/01/17 22:29 Ondansetron HCl (Zofran) 4 mg Q6H PRN IVP Nausea & Vomiting 09/24/17 22:30 10/24/17 22:29 Phenazopyridine HCl (Pyridium) 100 mg DAILY PRN ORAL dysuria 09/24/17 22:30 10/24/17 22:29 Polyethylene Glycol (Miralax) 17 gm DAILYPRN PRN ORAL Constipation 09/24/17 22:30 10/24/17 22:29 Sennosides (Senokot) 8.6 mg DAILYPRN PRN ORAL Constipation 09/27/17 15:00 10/27/17 14:59 Temazepam (Restoril) 15 mg HSPRN PRN ORAL Insomnia 09/24/17 22:30 10/01/17 22:29 Merissa Jeffries M.D. Sep 29, 2017 10:26
[2017-09-29 12:15] VITALS: BP 112/72
[2017-09-29 13:24] LABS: BASOPHILS % (AUTO) 1.3 % (0.0-2.0); EOSINOPHILS % (AUTO) 4.3 % (0.0-3.0); MEAN CORPUSCULAR HEMOGLOBIN 30.7 PG (27.0-31.0); MEAN CORPUSCULAR HGB CONC 32.3 G/DL (32.0-36.0); MEAN CORPUSCULAR VOLUME 95 FL (80-99); MEAN PLATELET VOLUME 4.7 FL (6.5-10.1); MONOCYTES % (AUTO) 8.7 % (1.0-10.0); NEUTROPHILS % (AUTO) 69.7 % (45.0-75.0); PLATELET COUNT 242 K/UL (150-450); RED BLOOD COUNT 4.05 M/UL (4.20-5.40); RED CELL DISTRIBUTION WIDTH 12.2 % (11.6-14.8); WHITE BLOOD COUNT 5.7 K/UL (4.8-10.8)
[2017-09-29 14:05] LABS: ANION GAP 8 mmol/L (5-15); CALCIUM 8.8 MG/DL (8.5-10.1); CARBON DIOXIDE 27 MMOL/L (21-32); CHLORIDE 100 MMOL/L (98-107); CREATININE 0.8 MG/DL (0.55-1.30); POTASSIUM 4.3 MMOL/L (3.5-5.1); SODIUM 135 MMOL/L (136-145)
--- NOTE | 2017-09-29 15:37 | Pulmonology Progress Note ---
Assessment/Plan Problems: (1) Complicated UTI (urinary tract infection) (2) Diabetes (3) Generalized weakness Assessment/Plan no new complains check electrolytes on cipro now sliding scale symptomatic treatment dc planning in progress Subjective ROS Limited/Unobtainable: No Interval Events: no new complains Allergies: Coded Allergies: TETRACYCLINE (Verified Allergy, Unknown, 09/24/17) Objective Last 24 Hour Vital Signs Date Time Temp Pulse Resp B/P (MAP) Pulse Ox O2 Delivery O2 Flow Rate FiO2 09/29/17 12:15 97.0 79 19 112/72 96 Room Air 09/29/17 08:15 98.2 93 21 155/81 97 Room Air 09/29/17 07:18 91 18 Room Air 09/29/17 04:00 96.8 77 20 145/79 96 Room Air 09/29/17 00:00 97.9 85 19 123/75 95 Room Air 09/28/17 20:00 97.5 89 19 140/76 97 Room Air 09/28/17 19:00 92 18 Room Air 09/28/17 16:00 98.2 86 18 127/72 98 Room Air Intake and Output 09/29/17 09/30/17 19:00 07:00 Intake Total 480 ml Balance 480 ml Intake Oral 480 ml # Voids 2 General Appearance: WD/WN HEENT: normocephalic, anicteric Cardiovascular: normal peripheral pulses, normal rate Abdomen: normal bowel sounds, no organomegaly Genitourinary: normal external genitalia Extremities: no clubbing Skin: no lesions Lymphatic: no neck adenopathy Laboratory Tests 09/29/17 13:10: White Blood Count 5.7, Red Blood Count 4.05L, Hemoglobin 12.4, Hematocrit 38.6, Mean Corpuscular Volume 95, Mean Corpuscular Hemoglobin 30.7, Mean Corpuscular Hemoglobin Concent 32.3, Red Cell Distribution Width 12.2, Platelet Count 242, Mean Platelet Volume 4.7L, Neutrophils (%) (Auto) 69.7, Lymphocytes (%) (Auto) 16.0L, Monocytes (%) (Auto) 8.7, Eosinophils (%) (Auto) 4.3H, Basophils (%) ( Auto) 1.3, Sodium Level 135L, Potassium Level 4.3, Chloride Level 100, Carbon Dioxide Level 27, Anion Gap 8, Blood Urea Nitrogen 15, Creatinine 0.8, Estimat Glomerular Filtration Rate , Glucose Level 353H, Calcium Level 8.8 Current Medications Medications (Trade) Dose Ordered Sig/Gemma Route PRN Reason Start Time Stop Time Status Last Admin Dose Admin Acetaminophen (Tylenol) 650 mg Q4H PRN ORAL fever 09/24/17 22:30 10/24/17 22:29 09/28/17 00:18 Albuterol/ Ipratropium (Albuterol/ Ipratropium) 3 ml Q4H PRN HHN Shortness of Breath 09/24/17 22:30 09/29/17 22:29 Ciprofloxacin (Cipro 500mg tab) 500 mg EVERY 12 HOURS ORAL 09/27/17 09:00 10/04/17 08:59 09/29/17 08:16 Dextrose (Dextrose 50%) STAT PRN IV Hypoglycemia 09/24/17 22:30 10/24/17 22:29 Escitalopram Oxalate (Lexapro) 10 mg DAILY ORAL 09/26/17 09:00 10/26/17 08:59 09/27/17 08:38 Heparin Sodium (Porcine) (Heparin 5000 units/ml) 5,000 units EVERY 12 HOURS SUBQ 09/25/17 09:00 10/25/17 08:59 09/28/17 21:01 Insulin Aspart (NovoLOG) BEFORE MEALS AND HS SUBQ 09/25/17 06:30 10/25/17 06:29 09/29/17 12:19 Morphine Sulfate (Morphine Sulfate) 2 mg Q4H PRN IVP Moderate Pain (Pain Scale 4-6) 09/24/17 22:30 10/01/17 22:29 Ondansetron HCl (Zofran) 4 mg Q6H PRN IVP Nausea & Vomiting 09/24/17 22:30 10/24/17 22:29 Phenazopyridine HCl (Pyridium) 100 mg DAILY PRN ORAL dysuria 09/24/17 22:30 10/24/17 22:29 Polyethylene Glycol (Miralax) 17 gm DAILYPRN PRN ORAL Constipation 09/24/17 22:30 10/24/17 22:29 Sennosides (Senokot) 8.6 mg DAILYPRN PRN ORAL Constipation 09/27/17 15:00 10/27/17 14:59 Temazepam (Restoril) 15 mg HSPRN PRN ORAL Insomnia 09/24/17 22:30 10/01/17 22:29 Vancomycin HCl (Vanco rx to dose) 1 ea DAILY PRN MISC Per rx protocol 09/29/17 13:00 10/29/17 12:59 DULCE JUAREZ Sep 29, 2017 15:37
--- NOTE | 2017-09-29 15:37 | Internal Med Progress Note ---
Subjective Date of Service: Sep 29, 2017 Physician Name Jonh Casiano Attending Physician Arnel Wagner MD Current Medications Medications (Trade) Dose Ordered Sig/Gemma Route PRN Reason Start Time Stop Time Status Last Admin Dose Admin Acetaminophen (Tylenol) 650 mg Q4H PRN ORAL fever 09/24/17 22:30 10/24/17 22:29 09/28/17 00:18 Albuterol/ Ipratropium (Albuterol/ Ipratropium) 3 ml Q4H PRN HHN Shortness of Breath 09/24/17 22:30 09/29/17 22:29 Ciprofloxacin (Cipro 500mg tab) 500 mg EVERY 12 HOURS ORAL 09/27/17 09:00 10/04/17 08:59 09/29/17 08:16 Dextrose (Dextrose 50%) STAT PRN IV Hypoglycemia 09/24/17 22:30 10/24/17 22:29 Escitalopram Oxalate (Lexapro) 10 mg DAILY ORAL 09/26/17 09:00 10/26/17 08:59 09/27/17 08:38 Heparin Sodium (Porcine) (Heparin 5000 units/ml) 5,000 units EVERY 12 HOURS SUBQ 09/25/17 09:00 10/25/17 08:59 09/28/17 21:01 Insulin Aspart (NovoLOG) BEFORE MEALS AND HS SUBQ 09/25/17 06:30 10/25/17 06:29 09/29/17 12:19 Morphine Sulfate (Morphine Sulfate) 2 mg Q4H PRN IVP Moderate Pain (Pain Scale 4-6) 09/24/17 22:30 10/01/17 22:29 Ondansetron HCl (Zofran) 4 mg Q6H PRN IVP Nausea & Vomiting 09/24/17 22:30 10/24/17 22:29 Phenazopyridine HCl (Pyridium) 100 mg DAILY PRN ORAL dysuria 09/24/17 22:30 10/24/17 22:29 Polyethylene Glycol (Miralax) 17 gm DAILYPRN PRN ORAL Constipation 09/24/17 22:30 10/24/17 22:29 Sennosides (Senokot) 8.6 mg DAILYPRN PRN ORAL Constipation 09/27/17 15:00 10/27/17 14:59 Temazepam (Restoril) 15 mg HSPRN PRN ORAL Insomnia 09/24/17 22:30 10/01/17 22:29 Vancomycin HCl (Vanco rx to dose) 1 ea DAILY PRN MISC Per rx protocol 09/29/17 13:00 10/29/17 12:59 UNV Allergies: Coded Allergies: TETRACYCLINE (Verified Allergy, Unknown, 09/24/17) ROS Limited/Unobtainable: No Constitutional: Reports: no symptoms HEENT: Reports: no symptoms Cardiovascular: Reports: no symptoms Respiratory: Reports: no symptoms Gastrointestinal/Abdominal: Reports: no symptoms Genitourinary: Reports: frequency Neurologic/Psychiatric: Reports: no symptoms Subjective 82 YO F admitted with UTI. Now sepsis. Patient refused vanco and daptomycin IV. Cover for Int Med-Dr Wagner. Objective Last Vital Signs Date Time Temp Pulse Resp B/P (MAP) Pulse Ox O2 Delivery O2 Flow Rate FiO2 09/29/17 12:15 97.0 79 19 112/72 96 Room Air Laboratory Tests Test 09/29/17 13:10 White Blood Count 5.7 K/UL (4.8-10.8) Red Blood Count 4.05 M/UL (4.20-5.40) L Hemoglobin 12.4 G/DL (12.0-16.0) Hematocrit 38.6 % (37.0-47.0) Mean Corpuscular Volume 95 FL (80-99) Mean Corpuscular Hemoglobin 30.7 PG (27.0-31.0) Mean Corpuscular Hemoglobin Concent 32.3 G/DL (32.0-36.0) Red Cell Distribution Width 12.2 % (11.6-14.8) Platelet Count 242 K/UL (150-450) Mean Platelet Volume 4.7 FL (6.5-10.1) L Neutrophils (%) (Auto) 69.7 % (45.0-75.0) Lymphocytes (%) (Auto) 16.0 % (20.0-45.0) L Monocytes (%) (Auto) 8.7 % (1.0-10.0) Eosinophils (%) (Auto) 4.3 % (0.0-3.0) H Basophils (%) (Auto) 1.3 % (0.0-2.0) Sodium Level 135 MMOL/L (136-145) L Potassium Level 4.3 MMOL/L (3.5-5.1) Chloride Level 100 MMOL/L (98-107) Carbon Dioxide Level 27 MMOL/L (21-32) Anion Gap 8 mmol/L (5-15) Blood Urea Nitrogen 15 mg/dL (7-18) Creatinine 0.8 MG/DL (0.55-1.30) Estimat Glomerular Filtration Rate mL/min (>60) Glucose Level 353 MG/DL (74-106) H Calcium Level 8.8 MG/DL (8.5-10.1) Intake and Output 09/29/17 09/30/17 19:00 07:00 Intake Total 480 ml Balance 480 ml Intake Oral 480 ml # Voids 2 Objective Objective General: No acute distress, awake and alert HEENT: NCAT, sclera anicteric, PERRL, EOMI. Neck: Supple, no significant jugular venous distention, Lungs: Good inspiratory effort, clear to auscultation bilaterally, no Wheeze or Rales. Heart: Regular rate and rhythm, normal S1/S2, no murmurs Abdomen: soft, nontender, nondistended. Normoactive bowel sounds. / Rectal: Refused and deferred. Extremities: No Cyanosis , clubbing or edema. Neuro: A&O x 3, Able to move all extremities Skin: warm, no rashes or lesions Psych: Normal mood and affect Assessment/Plan Problem List: (1) Neurogenic bladder (2) Diabetes mellitus, type II Assessment & Plan: Continue novolog (3) CAD (coronary artery disease) (4) UTI (urinary tract infection) Assessment & Plan: Klebsiella pneumo. Continue cipro per ID (5) Generalized weakness (6) Sepsis Assessment & Plan: Gram pos cocci. patient refused IV daptomycin-ID aware; see note. Await repeat blood cultures. Cont cipro; await ID and sens Status: not improved JONH CASIANO Sep 29, 2017 15:37
[2017-09-29 15:58] VITALS: BP 153/81
[2017-09-29] MEDS ORDERED: Vancomycin 750mg/NS 250ml 250 ML IVPB SCH (17:00)
[2017-09-29 20:00] VITALS: BP 118/72
--- NOTE | 2017-09-29 20:20 | General Progress Note ---
Assessment/Plan Status: stable Assessment/Plan anxiety d/o the pt maybe administer another class of medication/antibiotics Subjective Date patient seen: Sep 29, 2017 Neurologic/Psychiatric: Reports: anxiety Allergies: Coded Allergies: TETRACYCLINE (Verified Allergy, Unknown, 09/24/17) Subjective the pt is illogical and stated that she saw a man who told her that he is going to find her an apartment Objective Last 24 Hour Vital Signs Date Time Temp Pulse Resp B/P (MAP) Pulse Ox O2 Delivery O2 Flow Rate FiO2 09/29/17 15:58 97.3 77 20 153/81 96 Room Air 09/29/17 12:15 97.0 79 19 112/72 96 Room Air 09/29/17 08:15 98.2 93 21 155/81 97 Room Air 09/29/17 07:18 91 18 Room Air 09/29/17 04:00 96.8 77 20 145/79 96 Room Air 09/29/17 00:00 97.9 85 19 123/75 95 Room Air Intake and Output 09/29/17 09/30/17 19:00 07:00 Intake Total 720 ml Balance 720 ml Intake Oral 720 ml # Voids 2 Laboratory Tests 09/29/17 13:10: White Blood Count 5.7, Red Blood Count 4.05L, Hemoglobin 12.4, Hematocrit 38.6, Mean Corpuscular Volume 95, Mean Corpuscular Hemoglobin 30.7, Mean Corpuscular Hemoglobin Concent 32.3, Red Cell Distribution Width 12.2, Platelet Count 242, Mean Platelet Volume 4.7L, Neutrophils (%) (Auto) 69.7, Lymphocytes (%) (Auto) 16.0L, Monocytes (%) (Auto) 8.7, Eosinophils (%) (Auto) 4.3H, Basophils (%) ( Auto) 1.3, Sodium Level 135L, Potassium Level 4.3, Chloride Level 100, Carbon Dioxide Level 27, Anion Gap 8, Blood Urea Nitrogen 15, Creatinine 0.8, Estimat Glomerular Filtration Rate , Glucose Level 353H, Calcium Level 8.8 Height (Feet): 5 Height (Inches): 3.00 Weight (Pounds): 133 General Appearance: no apparent distress, alert Neurologic: alert, oriented x 3, responsive, normal mood/affect Hazel Watters M.D. Sep 29, 2017 20:20
[2017-09-30] VITALS (7 sets, daily range): BP systolic 133–151; BP diastolic 68–77
[2017-09-30] MEDS: NovoLOG Insulin Flexpen SUBQ SCH ×4 (05:53→20:09)
[2017-09-30 08:18] LABS: BASOPHILS % (AUTO) 1.7 % (0.0-2.0); EOSINOPHILS % (AUTO) 6.6 % (0.0-3.0); LYMPHOCYTES % (AUTO) 24.4 % (20.0-45.0); MEAN CORPUSCULAR HEMOGLOBIN 32.8 PG (27.0-31.0); MEAN CORPUSCULAR HGB CONC 34.9 G/DL (32.0-36.0); MEAN CORPUSCULAR VOLUME 94 FL (80-99); MEAN PLATELET VOLUME 5.4 FL (6.5-10.1); MONOCYTES % (AUTO) 10.8 % (1.0-10.0); NEUTROPHILS % (AUTO) 56.5 % (45.0-75.0); PLATELET COUNT 247 K/UL (150-450); RED BLOOD COUNT 3.74 M/UL (4.20-5.40); RED CELL DISTRIBUTION WIDTH 12.2 % (11.6-14.8); WHITE BLOOD COUNT 5.7 K/UL (4.8-10.8)
[2017-09-30 08:48] LABS: ALANINE AMINOTRANSFERASE 25 U/L (12-78); ALBUMIN/GLOBULIN RATIO 0.9 (1.0-2.7); ANION GAP 10 mmol/L (5-15); ASPARTATE AMINO TRANSFERASE 17 U/L (15-37); CALCIUM 8.7 MG/DL (8.5-10.1); CARBON DIOXIDE 24 MMOL/L (21-32); CHLORIDE 105 MMOL/L (98-107); POTASSIUM 3.9 MMOL/L (3.5-5.1); SODIUM 139 MMOL/L (136-145); TOTAL PROTEIN 6.4 G/DL (6.4-8.2)
[2017-09-30] MEDS: Ciprofloxacin 500mg tab ORAL SCH ×2 (08:53→20:08)
[2017-09-30] MEDS: Heparin 5000 units/ml inj SUBQ SCH ×2 (08:54→20:13)
[2017-09-30 09:17] LABS: MAGNESIUM 1.9 MG/DL (1.8-2.4); PHOSPHORUS 3.8 MG/DL (2.5-4.9)
--- NOTE | 2017-09-30 10:50 | Infectious Diseases Prog Note ---
Assessment/Plan Assessment/Plan ASSESSMENT: 82 y/o female with: // Probable recurrent complicated UTI - UCx>100K K. pna (S ancef, cipro/levo, bactrim; R amp, I nitrofurantoin), on Rx -Renal US: Negative for hydronephrosis. Bladder diverticulum. Postvoid bladder volume 70 mL. - h/o K.pneumoniae - h/o neurogenic bladder, retention SP surgery //11/12 bacteremia- initially reported as GPC, now corrected to GNC -Bcx 09/24 11/12 GNC clusters (id and sensi pending); Bcx 09/29 pending // Afebrile without leukocytosis // Generalized weakness // DM2 with hyperglycemia // h/o CAD // NH resident // Tetracycline allergy //VRE colonized // Full Code PLAN: - continue PO Cipro abx d# 04/18 and await ID GNC (?switch abx therapy); d/c IV Vancomycin #2 as no gram positive organisms in blood cx -09/27 SP IV Cefepime #3 -09/26 SP IV Vancomycin #2 - f/u cultures - monitor CBC, temperatures - monitor BMP Discussed with RN. Subjective Allergies: Coded Allergies: TETRACYCLINE (Verified Allergy, Unknown, 09/24/17) Subjective afebrile no leukocytosis Bcx growing 11/12 GPC in clusters- however patient refused any IV abx- refused vancomycin, daptomycin or ceftaroline and only wanted to be given "Micromycin" ( which is not a real antibiotic) Objective Vital Signs Last 24 Hour Vital Signs Date Time Temp Pulse Resp B/P (MAP) Pulse Ox O2 Delivery O2 Flow Rate FiO2 09/30/17 08:08 97.0 75 20 137/68 96 09/30/17 08:00 97.0 81 20 137/68 96 Room Air 09/30/17 04:00 97.7 89 18 141/74 96 Room Air 09/30/17 00:00 97.9 83 18 133/72 96 Room Air 09/29/17 20:00 97.9 85 18 118/72 95 Room Air 09/29/17 19:00 88 18 Room Air 09/29/17 15:58 97.3 77 20 153/81 96 Room Air 09/29/17 12:15 97.0 79 19 112/72 96 Room Air Height (Feet): 5 Height (Inches): 3.00 Weight (Pounds): 133 Objective General Appearance: no apparent distress, alert Lines, tubes and drains: peripheral HEENT: normocephalic, atraumatic, anicteric, mucous membranes moist Neck: non-tender, supple Respiratory/Chest: lungs clear - with moderate air entry , no respiratory distress, no accessory muscle use Cardiovascular/Chest: normal rate, regular rhythm, no JVD Abdomen: normal bowel sounds, non tender, soft Extremities: non-tender, no calf tenderness 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, alert, responsive, normal mood/affect Musculoskeletal: atrophy - BLE Laboratory Tests Test 09/29/17 13:10 09/30/17 08:09 White Blood Count 5.7 K/UL (4.8-10.8) 5.7 K/UL (4.8-10.8) Red Blood Count 4.05 M/UL (4.20-5.40) L 3.74 M/UL (4.20-5.40) L Hemoglobin 12.4 G/DL (12.0-16.0) 12.3 G/DL (12.0-16.0) Hematocrit 38.6 % (37.0-47.0) 35.1 % (37.0-47.0) L Mean Corpuscular Volume 95 FL (80-99) 94 FL (80-99) Mean Corpuscular Hemoglobin 30.7 PG (27.0-31.0) 32.8 PG (27.0-31.0) H Mean Corpuscular Hemoglobin Concent 32.3 G/DL (32.0-36.0) 34.9 G/DL (32.0-36.0) Red Cell Distribution Width 12.2 % (11.6-14.8) 12.2 % (11.6-14.8) Platelet Count 242 K/UL (150-450) 247 K/UL (150-450) Mean Platelet Volume 4.7 FL (6.5-10.1) L 5.4 FL (6.5-10.1) L Neutrophils (%) (Auto) 69.7 % (45.0-75.0) 56.5 % (45.0-75.0) Lymphocytes (%) (Auto) 16.0 % (20.0-45.0) L 24.4 % (20.0-45.0) Monocytes (%) (Auto) 8.7 % (1.0-10.0) 10.8 % (1.0-10.0) H Eosinophils (%) (Auto) 4.3 % (0.0-3.0) H 6.6 % (0.0-3.0) H Basophils (%) (Auto) 1.3 % (0.0-2.0) 1.7 % (0.0-2.0) Sodium Level 135 MMOL/L (136-145) L 139 MMOL/L (136-145) Potassium Level 4.3 MMOL/L (3.5-5.1) 3.9 MMOL/L (3.5-5.1) Chloride Level 100 MMOL/L (98-107) 105 MMOL/L (98-107) Carbon Dioxide Level 27 MMOL/L (21-32) 24 MMOL/L (21-32) Anion Gap 8 mmol/L (5-15) 10 mmol/L (5-15) Blood Urea Nitrogen 15 mg/dL (7-18) 19 mg/dL (7-18) H Creatinine 0.8 MG/DL (0.55-1.30) 1.0 MG/DL (0.55-1.30) Estimat Glomerular Filtration Rate mL/min (>60) mL/min (>60) Glucose Level 353 MG/DL (74-106) H 229 MG/DL (74-106) #H Calcium Level 8.8 MG/DL (8.5-10.1) 8.7 MG/DL (8.5-10.1) Phosphorus Level 3.8 MG/DL (2.5-4.9) Magnesium Level 1.9 MG/DL (1.8-2.4) Total Bilirubin 0.3 MG/DL (0.2-1.0) Aspartate Amino Transf (AST/SGOT) 17 U/L (15-37) Alanine Aminotransferase (ALT/SGPT) 25 U/L (12-78) Alkaline Phosphatase 74 U/L (46-116) Total Protein 6.4 G/DL (6.4-8.2) Albumin 3.1 G/DL (3.4-5.0) L Globulin 3.3 g/dL Albumin/Globulin Ratio 0.9 (1.0-2.7) L Current Medications Medications (Trade) Dose Ordered Sig/Gemma Route PRN Reason Start Time Stop Time Status Last Admin Dose Admin Acetaminophen (Tylenol) 650 mg Q4H PRN ORAL fever 09/24/17 22:30 10/24/17 22:29 09/29/17 23:55 Ciprofloxacin (Cipro 500mg tab) 500 mg EVERY 12 HOURS ORAL 09/27/17 09:00 10/04/17 08:59 09/30/17 08:53 Dextrose (Dextrose 50%) STAT PRN IV Hypoglycemia 09/24/17 22:30 10/24/17 22:29 Escitalopram Oxalate (Lexapro) 10 mg DAILY ORAL 09/26/17 09:00 10/26/17 08:59 09/27/17 08:38 Heparin Sodium (Porcine) (Heparin 5000 units/ml) 5,000 units EVERY 12 HOURS SUBQ 09/25/17 09:00 10/25/17 08:59 09/28/17 21:01 Insulin Aspart (NovoLOG) BEFORE MEALS AND HS SUBQ 09/25/17 06:30 10/25/17 06:29 09/30/17 05:53 Morphine Sulfate (Morphine Sulfate) 2 mg Q4H PRN IVP Moderate Pain (Pain Scale 4-6) 09/24/17 22:30 10/01/17 22:29 Ondansetron HCl (Zofran) 4 mg Q6H PRN IVP Nausea & Vomiting 09/24/17 22:30 10/24/17 22:29 Phenazopyridine HCl (Pyridium) 100 mg DAILY PRN ORAL dysuria 09/24/17 22:30 10/24/17 22:29 Polyethylene Glycol (Miralax) 17 gm DAILYPRN PRN ORAL Constipation 09/24/17 22:30 10/24/17 22:29 Sennosides (Senokot) 8.6 mg DAILYPRN PRN ORAL Constipation 09/27/17 15:00 10/27/17 14:59 Temazepam (Restoril) 15 mg HSPRN PRN ORAL Insomnia 09/24/17 22:30 10/01/17 22:29 Vancomycin HCl (Vanco rx to dose) 1 ea DAILYPRN PRN MISC Per rx protocol 09/29/17 13:00 10/29/17 12:59 Vancomycin/Sodium Chloride 250 ml @ 166.667 mls/hr Q24H IVPB 09/29/17 17:00 10/04/17 16:59 09/29/17 17:12 Merissa Jeffries M.D. Sep 30, 2017 10:50
--- NOTE | 2017-09-30 11:30 | Internal Med Progress Note ---
Subjective Date of Service: Sep 30, 2017 Physician Name Cinthia Casiano Attending Physician Arnel Wagner MD Current Medications Medications (Trade) Dose Ordered Sig/Gemma Route PRN Reason Start Time Stop Time Status Last Admin Dose Admin Acetaminophen (Tylenol) 650 mg Q4H PRN ORAL fever 09/24/17 22:30 10/24/17 22:29 09/29/17 23:55 Ciprofloxacin (Cipro 500mg tab) 500 mg EVERY 12 HOURS ORAL 09/27/17 09:00 10/04/17 08:59 09/30/17 08:53 Dextrose (Dextrose 50%) STAT PRN IV Hypoglycemia 09/24/17 22:30 10/24/17 22:29 Escitalopram Oxalate (Lexapro) 10 mg DAILY ORAL 09/26/17 09:00 10/26/17 08:59 09/27/17 08:38 Heparin Sodium (Porcine) (Heparin 5000 units/ml) 5,000 units EVERY 12 HOURS SUBQ 09/25/17 09:00 10/25/17 08:59 09/28/17 21:01 Insulin Aspart (NovoLOG) BEFORE MEALS AND HS SUBQ 09/25/17 06:30 10/25/17 06:29 09/30/17 05:53 Morphine Sulfate (Morphine Sulfate) 2 mg Q4H PRN IVP Moderate Pain (Pain Scale 4-6) 09/24/17 22:30 10/01/17 22:29 Ondansetron HCl (Zofran) 4 mg Q6H PRN IVP Nausea & Vomiting 09/24/17 22:30 10/24/17 22:29 Phenazopyridine HCl (Pyridium) 100 mg DAILY PRN ORAL dysuria 09/24/17 22:30 10/24/17 22:29 Polyethylene Glycol (Miralax) 17 gm DAILYPRN PRN ORAL Constipation 09/24/17 22:30 10/24/17 22:29 Sennosides (Senokot) 8.6 mg DAILYPRN PRN ORAL Constipation 09/27/17 15:00 10/27/17 14:59 Temazepam (Restoril) 15 mg HSPRN PRN ORAL Insomnia 09/24/17 22:30 10/01/17 22:29 Allergies: Coded Allergies: TETRACYCLINE (Verified Allergy, Unknown, 09/24/17) ROS Limited/Unobtainable: No Constitutional: Reports: no symptoms HEENT: Reports: no symptoms Cardiovascular: Reports: no symptoms Respiratory: Reports: no symptoms Gastrointestinal/Abdominal: Reports: no symptoms Genitourinary: Reports: no symptoms Neurologic/Psychiatric: Reports: no symptoms Subjective 82 YO F admitted with UTI. Await [facility] facility placement. Cover for Int Carl-Dr Wagner. Objective Last Vital Signs Date Time Temp Pulse Resp B/P (MAP) Pulse Ox O2 Delivery O2 Flow Rate FiO2 09/30/17 08:08 97.0 75 20 137/68 96 09/30/17 08:00 Room Air Laboratory Tests Test 09/29/17 13:10 09/30/17 08:09 White Blood Count 5.7 K/UL (4.8-10.8) 5.7 K/UL (4.8-10.8) Red Blood Count 4.05 M/UL (4.20-5.40) L 3.74 M/UL (4.20-5.40) L Hemoglobin 12.4 G/DL (12.0-16.0) 12.3 G/DL (12.0-16.0) Hematocrit 38.6 % (37.0-47.0) 35.1 % (37.0-47.0) L Mean Corpuscular Volume 95 FL (80-99) 94 FL (80-99) Mean Corpuscular Hemoglobin 30.7 PG (27.0-31.0) 32.8 PG (27.0-31.0) H Mean Corpuscular Hemoglobin Concent 32.3 G/DL (32.0-36.0) 34.9 G/DL (32.0-36.0) Red Cell Distribution Width 12.2 % (11.6-14.8) 12.2 % (11.6-14.8) Platelet Count 242 K/UL (150-450) 247 K/UL (150-450) Mean Platelet Volume 4.7 FL (6.5-10.1) L 5.4 FL (6.5-10.1) L Neutrophils (%) (Auto) 69.7 % (45.0-75.0) 56.5 % (45.0-75.0) Lymphocytes (%) (Auto) 16.0 % (20.0-45.0) L 24.4 % (20.0-45.0) Monocytes (%) (Auto) 8.7 % (1.0-10.0) 10.8 % (1.0-10.0) H Eosinophils (%) (Auto) 4.3 % (0.0-3.0) H 6.6 % (0.0-3.0) H Basophils (%) (Auto) 1.3 % (0.0-2.0) 1.7 % (0.0-2.0) Sodium Level 135 MMOL/L (136-145) L 139 MMOL/L (136-145) Potassium Level 4.3 MMOL/L (3.5-5.1) 3.9 MMOL/L (3.5-5.1) Chloride Level 100 MMOL/L (98-107) 105 MMOL/L (98-107) Carbon Dioxide Level 27 MMOL/L (21-32) 24 MMOL/L (21-32) Anion Gap 8 mmol/L (5-15) 10 mmol/L (5-15) Blood Urea Nitrogen 15 mg/dL (7-18) 19 mg/dL (7-18) H Creatinine 0.8 MG/DL (0.55-1.30) 1.0 MG/DL (0.55-1.30) Estimat Glomerular Filtration Rate mL/min (>60) mL/min (>60) Glucose Level 353 MG/DL (74-106) H 229 MG/DL (74-106) #H Calcium Level 8.8 MG/DL (8.5-10.1) 8.7 MG/DL (8.5-10.1) Phosphorus Level 3.8 MG/DL (2.5-4.9) Magnesium Level 1.9 MG/DL (1.8-2.4) Total Bilirubin 0.3 MG/DL (0.2-1.0) Aspartate Amino Transf (AST/SGOT) 17 U/L (15-37) Alanine Aminotransferase (ALT/SGPT) 25 U/L (12-78) Alkaline Phosphatase 74 U/L (46-116) Total Protein 6.4 G/DL (6.4-8.2) Albumin 3.1 G/DL (3.4-5.0) L Globulin 3.3 g/dL Albumin/Globulin Ratio 0.9 (1.0-2.7) L Intake and Output 09/30/17 10/01/17 19:00 07:00 Intake Total 360 ml Balance 360 ml Intake Oral 360 ml Objective Objective General: No acute distress, awake and alert HEENT: NCAT, sclera anicteric, PERRL, EOMI. Neck: Supple, no significant jugular venous distention, Lungs: Good inspiratory effort, clear to auscultation bilaterally, no Wheeze or Rales. Heart: Regular rate and rhythm, normal S1/S2, no murmurs Abdomen: soft, nontender, nondistended. Normoactive bowel sounds. / Rectal: Refused and deferred. Extremities: No Cyanosis , clubbing or edema. Neuro: A&O x 3, Able to move all extremities Skin: warm, no rashes or lesions Psych: Normal mood and affect Assessment/Plan Problem List: (1) Neurogenic bladder (2) Diabetes mellitus, type II Assessment & Plan: Continue novolog (3) CAD (coronary artery disease) (4) UTI (urinary tract infection) Assessment & Plan: Klebsiella pneumo. Continue cipro per ID (5) Generalized weakness (6) Sepsis Assessment & Plan: Gram neg coccobacilli. Patient refused IV daptomycin-ID aware; see note. Await repeat blood cultures. Cont cipro per ID Status: progressing Assessment/Plan Discharge planning: [facility] CINTHIA CASIANO Sep 30, 2017 11:30
--- NOTE | 2017-09-30 13:42 | Pulmonology Progress Note ---
Assessment/Plan Problems: (1) Complicated UTI (urinary tract infection) (2) Diabetes (3) Generalized weakness Assessment/Plan appealed the discharge no new complains check electrolytes sliding scale symptomatic treatment dc planning in progress Subjective ROS Limited/Unobtainable: No Constitutional: Reports: no symptoms HEENT: Repors: no symptoms Respiratory: Reports: no symptoms Cardiovascular: Reports: no symptoms Allergies: Coded Allergies: TETRACYCLINE (Verified Allergy, Unknown, 09/24/17) Objective Last 24 Hour Vital Signs Date Time Temp Pulse Resp B/P (MAP) Pulse Ox O2 Delivery O2 Flow Rate FiO2 09/30/17 13:00 87 19 Room Air 09/30/17 12:58 97.5 78 20 142/77 96 09/30/17 08:08 97.0 75 20 137/68 96 09/30/17 08:00 97.0 81 20 137/68 96 Room Air 09/30/17 04:00 97.7 89 18 141/74 96 Room Air 09/30/17 00:00 97.9 83 18 133/72 96 Room Air 09/29/17 20:00 97.9 85 18 118/72 95 Room Air 09/29/17 19:00 88 18 Room Air 09/29/17 15:58 97.3 77 20 153/81 96 Room Air Intake and Output 09/30/17 10/01/17 19:00 07:00 Intake Total 720 ml Balance 720 ml Intake Oral 720 ml # Voids 3 Objective General Appearance: WD/WN HEENT: normocephalic, anicteric Cardiovascular: normal peripheral pulses, normal rate Abdomen: normal bowel sounds, no organomegaly Genitourinary: normal external genitalia Extremities: no clubbing Skin: no lesions Lymphatic: no neck adenopathy Laboratory Tests 09/30/17 08:09: White Blood Count 5.7, Red Blood Count 3.74L, Hemoglobin 12.3, Hematocrit 35.1L , Mean Corpuscular Volume 94, Mean Corpuscular Hemoglobin 32.8H, Mean Corpuscular Hemoglobin Concent 34.9, Red Cell Distribution Width 12.2, Platelet Count 247, Mean Platelet Volume 5.4L, Neutrophils (%) (Auto) 56.5, Lymphocytes ( %) (Auto) 24.4, Monocytes (%) (Auto) 10.8H, Eosinophils (%) (Auto) 6.6H, Basophils (%) (Auto) 1.7, Sodium Level 139, Potassium Level 3.9, Chloride Level 105, Carbon Dioxide Level 24, Anion Gap 10, Blood Urea Nitrogen 19H, Creatinine 1.0, Estimat Glomerular Filtration Rate , Glucose Level 229#H, Calcium Level 8.7 , Phosphorus Level 3.8, Magnesium Level 1.9, Total Bilirubin 0.3, Aspartate Amino Transf (AST/SGOT) 17, Alanine Aminotransferase (ALT/SGPT) 25, Alkaline Phosphatase 74, Total Protein 6.4, Albumin 3.1L, Globulin 3.3, Albumin/Globulin Ratio 0.9L Current Medications Medications (Trade) Dose Ordered Sig/Gemma Route PRN Reason Start Time Stop Time Status Last Admin Dose Admin Acetaminophen (Tylenol) 650 mg Q4H PRN ORAL fever 09/24/17 22:30 10/24/17 22:29 09/29/17 23:55 Ciprofloxacin (Cipro 500mg tab) 500 mg EVERY 12 HOURS ORAL 09/27/17 09:00 10/04/17 08:59 09/30/17 08:53 Dextrose (Dextrose 50%) STAT PRN IV Hypoglycemia 09/24/17 22:30 10/24/17 22:29 Escitalopram Oxalate (Lexapro) 10 mg DAILY ORAL 09/26/17 09:00 10/26/17 08:59 09/27/17 08:38 Heparin Sodium (Porcine) (Heparin 5000 units/ml) 5,000 units EVERY 12 HOURS SUBQ 09/25/17 09:00 10/25/17 08:59 09/28/17 21:01 Insulin Aspart (NovoLOG) BEFORE MEALS AND HS SUBQ 09/25/17 06:30 10/25/17 06:29 09/30/17 12:34 Morphine Sulfate (Morphine Sulfate) 2 mg Q4H PRN IVP Moderate Pain (Pain Scale 4-6) 09/24/17 22:30 10/01/17 22:29 Ondansetron HCl (Zofran) 4 mg Q6H PRN IVP Nausea & Vomiting 09/24/17 22:30 10/24/17 22:29 Phenazopyridine HCl (Pyridium) 100 mg DAILY PRN ORAL dysuria 09/24/17 22:30 10/24/17 22:29 Polyethylene Glycol (Miralax) 17 gm DAILYPRN PRN ORAL Constipation 09/24/17 22:30 10/24/17 22:29 Sennosides (Senokot) 8.6 mg DAILYPRN PRN ORAL Constipation 09/27/17 15:00 10/27/17 14:59 Temazepam (Restoril) 15 mg HSPRN PRN ORAL Insomnia 09/24/17 22:30 10/01/17 22:29 DULCE DOMINGO Sep 30, 2017 13:42
--- NOTE | 2017-09-30 16:06 | General Progress Note ---
Assessment/Plan Assessment/Plan anxiety d/o the pt is at early stage of dementia Subjective Neurologic/Psychiatric: Reports: anxiety, depressed, emotional problems Allergies: Coded Allergies: TETRACYCLINE (Verified Allergy, Unknown, 09/24/17) Subjective the pt is illogical, the pt has cognitive impairment althought [id number] i dont believe the pt understand the situation she is in Objective Last 24 Hour Vital Signs Date Time Temp Pulse Resp B/P (MAP) Pulse Ox O2 Delivery O2 Flow Rate FiO2 09/30/17 13:00 87 19 Room Air 09/30/17 12:58 Room Air 09/30/17 12:58 97.5 78 20 142/77 96 09/30/17 08:08 97.0 75 20 137/68 96 09/30/17 08:00 97.0 81 20 137/68 96 Room Air 09/30/17 04:00 97.7 89 18 141/74 96 Room Air 09/30/17 00:00 97.9 83 18 133/72 96 Room Air 09/29/17 20:00 97.9 85 18 118/72 95 Room Air 09/29/17 19:00 88 18 Room Air Intake and Output 09/30/17 10/01/17 19:00 07:00 Intake Total 720 ml Balance 720 ml Intake Oral 720 ml # Voids 3 Laboratory Tests 09/30/17 08:09: White Blood Count 5.7, Red Blood Count 3.74L, Hemoglobin 12.3, Hematocrit 35.1L , Mean Corpuscular Volume 94, Mean Corpuscular Hemoglobin 32.8H, Mean Corpuscular Hemoglobin Concent 34.9, Red Cell Distribution Width 12.2, Platelet Count 247, Mean Platelet Volume 5.4L, Neutrophils (%) (Auto) 56.5, Lymphocytes ( %) (Auto) 24.4, Monocytes (%) (Auto) 10.8H, Eosinophils (%) (Auto) 6.6H, Basophils (%) (Auto) 1.7, Sodium Level 139, Potassium Level 3.9, Chloride Level 105, Carbon Dioxide Level 24, Anion Gap 10, Blood Urea Nitrogen 19H, Creatinine 1.0, Estimat Glomerular Filtration Rate , Glucose Level 229#H, Calcium Level 8.7 , Phosphorus Level 3.8, Magnesium Level 1.9, Total Bilirubin 0.3, Aspartate Amino Transf (AST/SGOT) 17, Alanine Aminotransferase (ALT/SGPT) 25, Alkaline Phosphatase 74, Total Protein 6.4, Albumin 3.1L, Globulin 3.3, Albumin/Globulin Ratio 0.9L Height (Feet): 5 Height (Inches): 3.00 Weight (Pounds): 133 General Appearance: WD/WN, no apparent distress, alert Neurologic: alert, oriented x 3, responsive, normal mood/affect Hazel Watters M.D. Sep 30, 2017 16:06
[2017-10-01] VITALS: BP 149/74
[2017-10-01 04:38] VITALS: BP 133/63
[2017-10-01] MEDS: NovoLOG Insulin Flexpen SUBQ SCH ×4 (06:20→21:06)
[2017-10-01 07:21] LABS: ANION GAP 7 mmol/L (5-15); CARBON DIOXIDE 26 MMOL/L (21-32); CHLORIDE 106 MMOL/L (98-107); CREATININE 0.7 MG/DL (0.55-1.30); POTASSIUM 4.2 MMOL/L (3.5-5.1); SODIUM 139 MMOL/L (136-145)
[2017-10-01 07:24] LABS: BASOPHILS % (AUTO) 1.3 % (0.0-2.0); EOSINOPHILS % (AUTO) 5.3 % (0.0-3.0); LYMPHOCYTES % (AUTO) 27.7 % (20.0-45.0); MEAN CORPUSCULAR HEMOGLOBIN 33.3 PG (27.0-31.0); MEAN CORPUSCULAR HGB CONC 35.4 G/DL (32.0-36.0); MEAN CORPUSCULAR VOLUME 94 FL (80-99); MEAN PLATELET VOLUME 5.4 FL (6.5-10.1); MONOCYTES % (AUTO) 11.2 % (1.0-10.0); NEUTROPHILS % (AUTO) 54.6 % (45.0-75.0); PLATELET COUNT 226 K/UL (150-450); RED BLOOD COUNT 3.51 M/UL (4.20-5.40); RED CELL DISTRIBUTION WIDTH 12.1 % (11.6-14.8); WHITE BLOOD COUNT 5.8 K/UL (4.8-10.8)
[2017-10-01] MEDS: Ciprofloxacin 500mg tab ORAL SCH ×2 (08:19→21:04)
[2017-10-01] MEDS: Heparin 5000 units/ml inj SUBQ SCH ×2 (08:20→21:00)
[2017-10-01 08:28] VITALS: BP 136/77
--- NOTE | 2017-10-01 10:27 | Infectious Diseases Prog Note ---
Assessment/Plan Assessment/Plan ASSESSMENT: 82 y/o female with: // Probable recurrent complicated UTI - UCx>100K K. pna (S ancef, cipro/levo, bactrim; R amp, I nitrofurantoin), on Rx -Renal US: Negative for hydronephrosis. Bladder diverticulum. Postvoid bladder volume 70 mL. - h/o K.pneumoniae - h/o neurogenic bladder, retention SP surgery //11/12 bacteremia-contaminant/commensal organism -Bcx 09/24 11/12 COMMENTS: BETA LACTAMASE= POSITIVE Organism 1 MORAXELLA PHENYLPYRUVICA ; Bcx 09/29 NTD // Afebrile without leukocytosis // Generalized weakness // DM2 with hyperglycemia // h/o CAD // [facility] resident // Tetracycline allergy //VRE colonized // Full Code PLAN: - continue PO Cipro abx d# 05/18 for UTI -09/30 SP IV Vancomycin #2 -09/27 SP IV Cefepime #3 -09/26 SP IV Vancomycin #2 - f/u repeat blood cultures - monitor CBC, temperatures - monitor BMP -Stable for discharge from ID stand point Discussed with RN. Subjective Allergies: Coded Allergies: TETRACYCLINE (Verified Allergy, Unknown, 09/24/17) Subjective afebrile no leukocytosis repeat bcx NTD Objective Vital Signs Last 24 Hour Vital Signs Date Time Temp Pulse Resp B/P (MAP) Pulse Ox O2 Delivery O2 Flow Rate FiO2 10/01/17 08:28 97.2 82 20 136/77 96 Room Air 10/01/17 08:03 85 19 Room Air 10/01/17 04:38 97.3 71 18 133/63 96 10/01/17 00:00 97.0 78 19 149/74 97 Room Air 09/30/17 20:00 97.2 85 19 147/73 97 Room Air 09/30/17 19:00 78 19 Room Air 09/30/17 16:06 97.7 85 20 151/74 98 09/30/17 16:06 Room Air 09/30/17 13:00 87 19 Room Air 09/30/17 12:58 Room Air 09/30/17 12:58 97.5 78 20 142/77 96 Height (Feet): 5 Height (Inches): 3.00 Weight (Pounds): 133 Objective General Appearance: no apparent distress, alert Lines, tubes and drains: peripheral HEENT: normocephalic, atraumatic, anicteric, mucous membranes moist Neck: non-tender, supple Respiratory/Chest: lungs clear - with moderate air entry , no respiratory distress, no accessory muscle use Cardiovascular/Chest: normal rate, regular rhythm, no JVD Abdomen: normal bowel sounds, non tender, soft Extremities: non-tender, no calf tenderness Neurologic: leather splitter II-XII grossly normal, alert, responsive, normal mood/affect Musculoskeletal: atrophy - BLE Microbiology Date/Time Source Procedure Growth Status 09/29/17 13:15 Blood Blood Culture - Preliminary NO GROWTH AFTER 24 HOURS Resulted 09/29/17 13:10 Blood Blood Culture - Preliminary NO GROWTH AFTER 24 HOURS Resulted Laboratory Tests Test 10/01/17 04:35 White Blood Count 5.8 K/UL (4.8-10.8) Red Blood Count 3.51 M/UL (4.20-5.40) L Hemoglobin 11.7 G/DL (12.0-16.0) L Hematocrit 33.0 % (37.0-47.0) L Mean Corpuscular Volume 94 FL (80-99) Mean Corpuscular Hemoglobin 33.3 PG (27.0-31.0) H Mean Corpuscular Hemoglobin Concent 35.4 G/DL (32.0-36.0) Red Cell Distribution Width 12.1 % (11.6-14.8) Platelet Count 226 K/UL (150-450) Mean Platelet Volume 5.4 FL (6.5-10.1) L Neutrophils (%) (Auto) 54.6 % (45.0-75.0) Lymphocytes (%) (Auto) 27.7 % (20.0-45.0) Monocytes (%) (Auto) 11.2 % (1.0-10.0) H Eosinophils (%) (Auto) 5.3 % (0.0-3.0) H Basophils (%) (Auto) 1.3 % (0.0-2.0) Sodium Level 139 MMOL/L (136-145) Potassium Level 4.2 MMOL/L (3.5-5.1) Chloride Level 106 MMOL/L (98-107) Carbon Dioxide Level 26 MMOL/L (21-32) Anion Gap 7 mmol/L (5-15) Blood Urea Nitrogen 17 mg/dL (7-18) Creatinine 0.7 MG/DL (0.55-1.30) Estimat Glomerular Filtration Rate mL/min (>60) Glucose Level 146 MG/DL (74-106) H Calcium Level 9.0 MG/DL (8.5-10.1) Current Medications Medications (Trade) Dose Ordered Sig/Gemma Route PRN Reason Start Time Stop Time Status Last Admin Dose Admin Acetaminophen (Tylenol) 650 mg Q4H PRN ORAL fever 09/24/17 22:30 10/24/17 22:29 09/29/17 23:55 Ciprofloxacin (Cipro 500mg tab) 500 mg EVERY 12 HOURS ORAL 09/27/17 09:00 10/04/17 08:59 10/01/17 08:19 Dextrose (Dextrose 50%) STAT PRN IV Hypoglycemia 09/24/17 22:30 10/24/17 22:29 Escitalopram Oxalate (Lexapro) 10 mg DAILY ORAL 09/26/17 09:00 10/26/17 08:59 09/27/17 08:38 Heparin Sodium (Porcine) (Heparin 5000 units/ml) 5,000 units EVERY 12 HOURS SUBQ 09/25/17 09:00 10/25/17 08:59 09/28/17 21:01 Insulin Aspart (NovoLOG) BEFORE MEALS AND HS SUBQ 09/25/17 06:30 10/25/17 06:29 09/30/17 20:09 Morphine Sulfate (Morphine Sulfate) 2 mg Q4H PRN IVP Moderate Pain (Pain Scale 4-6) 09/24/17 22:30 10/01/17 22:29 Ondansetron HCl (Zofran) 4 mg Q6H PRN IVP Nausea & Vomiting 09/24/17 22:30 10/24/17 22:29 Phenazopyridine HCl (Pyridium) 100 mg DAILY PRN ORAL dysuria 09/24/17 22:30 10/24/17 22:29 Polyethylene Glycol (Miralax) 17 gm DAILYPRN PRN ORAL Constipation 09/24/17 22:30 10/24/17 22:29 Sennosides (Senokot) 8.6 mg DAILYPRN PRN ORAL Constipation 09/27/17 15:00 10/27/17 14:59 Temazepam (Restoril) 15 mg HSPRN PRN ORAL Insomnia 09/24/17 22:30 10/01/17 22:29 Merissa Jeffries M.D. Oct 01, 2017 10:26
--- NOTE | 2017-10-01 11:19 | Pulmonology Progress Note ---
Assessment/Plan Problems: (1) Complicated UTI (urinary tract infection) (2) Diabetes (3) Generalized weakness Assessment/Plan appealed the discharge no new complains check electrolytes Psych f/u sliding scale symptomatic treatment dc planning in progress Subjective ROS Limited/Unobtainable: No Allergies: Coded Allergies: TETRACYCLINE (Verified Allergy, Unknown, 09/24/17) Objective Last 24 Hour Vital Signs Date Time Temp Pulse Resp B/P (MAP) Pulse Ox O2 Delivery O2 Flow Rate FiO2 10/01/17 08:28 97.2 82 20 136/77 96 Room Air 10/01/17 08:03 85 19 Room Air 10/01/17 04:38 97.3 71 18 133/63 96 10/01/17 00:00 97.0 78 19 149/74 97 Room Air 09/30/17 20:00 97.2 85 19 147/73 97 Room Air 09/30/17 19:00 78 19 Room Air 09/30/17 16:06 97.7 85 20 151/74 98 09/30/17 16:06 Room Air 09/30/17 13:00 87 19 Room Air 09/30/17 12:58 Room Air 09/30/17 12:58 97.5 78 20 142/77 96 Intake and Output 10/01/17 10/02/17 19:00 07:00 Intake Total 360 ml Balance 360 ml Intake Oral 360 ml Objective General Appearance: WD/WN HEENT: normocephalic, anicteric Cardiovascular: normal peripheral pulses, normal rate Abdomen: normal bowel sounds, no organomegaly Genitourinary: normal external genitalia Extremities: no clubbing Skin: no lesions Lymphatic: no neck adenopathy Microbiology Date/Time Source Procedure Growth Status 09/29/17 13:15 Blood Blood Culture - Preliminary NO GROWTH AFTER 24 HOURS Resulted 09/29/17 13:10 Blood Blood Culture - Preliminary NO GROWTH AFTER 24 HOURS Resulted Laboratory Tests 10/01/17 04:35: White Blood Count 5.8, Red Blood Count 3.51L, Hemoglobin 11.7L, Hematocrit 33.0L , Mean Corpuscular Volume 94, Mean Corpuscular Hemoglobin 33.3H, Mean Corpuscular Hemoglobin Concent 35.4, Red Cell Distribution Width 12.1, Platelet Count 226, Mean Platelet Volume 5.4L, Neutrophils (%) (Auto) 54.6, Lymphocytes ( %) (Auto) 27.7, Monocytes (%) (Auto) 11.2H, Eosinophils (%) (Auto) 5.3H, Basophils (%) (Auto) 1.3, Sodium Level 139, Potassium Level 4.2, Chloride Level 106, Carbon Dioxide Level 26, Anion Gap 7, Blood Urea Nitrogen 17, Creatinine 0.7, Estimat Glomerular Filtration Rate , Glucose Level 146H, Calcium Level 9.0 Current Medications Medications (Trade) Dose Ordered Sig/Gemma Route PRN Reason Start Time Stop Time Status Last Admin Dose Admin Acetaminophen (Tylenol) 650 mg Q4H PRN ORAL fever 09/24/17 22:30 10/24/17 22:29 09/29/17 23:55 Ciprofloxacin (Cipro 500mg tab) 500 mg EVERY 12 HOURS ORAL 09/27/17 09:00 10/04/17 08:59 10/01/17 08:19 Dextrose (Dextrose 50%) STAT PRN IV Hypoglycemia 09/24/17 22:30 10/24/17 22:29 Escitalopram Oxalate (Lexapro) 10 mg DAILY ORAL 09/26/17 09:00 10/26/17 08:59 09/27/17 08:38 Heparin Sodium (Porcine) (Heparin 5000 units/ml) 5,000 units EVERY 12 HOURS SUBQ 09/25/17 09:00 10/25/17 08:59 09/28/17 21:01 Insulin Aspart (NovoLOG) BEFORE MEALS AND HS SUBQ 09/25/17 06:30 10/25/17 06:29 09/30/17 20:09 Morphine Sulfate (Morphine Sulfate) 2 mg Q4H PRN IVP Moderate Pain (Pain Scale 4-6) 09/24/17 22:30 10/01/17 22:29 Ondansetron HCl (Zofran) 4 mg Q6H PRN IVP Nausea & Vomiting 09/24/17 22:30 10/24/17 22:29 Phenazopyridine HCl (Pyridium) 100 mg DAILY PRN ORAL dysuria 09/24/17 22:30 10/24/17 22:29 Polyethylene Glycol (Miralax) 17 gm DAILYPRN PRN ORAL Constipation 09/24/17 22:30 10/24/17 22:29 Sennosides (Senokot) 8.6 mg DAILYPRN PRN ORAL Constipation 09/27/17 15:00 10/27/17 14:59 Temazepam (Restoril) 15 mg HSPRN PRN ORAL Insomnia 09/24/17 22:30 10/01/17 22:29 DULCE DOMINGO Oct 01, 2017 11:19
[2017-10-01 11:40] VITALS: BP 116/53
--- NOTE | 2017-10-01 12:33 | Internal Med Progress Note ---
Subjective Date of Service: Oct 01, 2017 Physician Name Cinthia Casiano Attending Physician Arnel Wagner MD Current Medications Medications (Trade) Dose Ordered Sig/Gemma Route PRN Reason Start Time Stop Time Status Last Admin Dose Admin Acetaminophen (Tylenol) 650 mg Q4H PRN ORAL fever 09/24/17 22:30 10/24/17 22:29 09/29/17 23:55 Ciprofloxacin (Cipro 500mg tab) 500 mg EVERY 12 HOURS ORAL 09/27/17 09:00 10/04/17 08:59 10/01/17 08:19 Dextrose (Dextrose 50%) STAT PRN IV Hypoglycemia 09/24/17 22:30 10/24/17 22:29 Escitalopram Oxalate (Lexapro) 10 mg DAILY ORAL 09/26/17 09:00 10/26/17 08:59 09/27/17 08:38 Heparin Sodium (Porcine) (Heparin 5000 units/ml) 5,000 units EVERY 12 HOURS SUBQ 09/25/17 09:00 10/25/17 08:59 09/28/17 21:01 Insulin Aspart (NovoLOG) BEFORE MEALS AND HS SUBQ 09/25/17 06:30 10/25/17 06:29 10/01/17 11:59 Morphine Sulfate (Morphine Sulfate) 2 mg Q4H PRN IVP Moderate Pain (Pain Scale 4-6) 09/24/17 22:30 10/01/17 22:29 Ondansetron HCl (Zofran) 4 mg Q6H PRN IVP Nausea & Vomiting 09/24/17 22:30 10/24/17 22:29 Phenazopyridine HCl (Pyridium) 100 mg DAILY PRN ORAL dysuria 09/24/17 22:30 10/24/17 22:29 Polyethylene Glycol (Miralax) 17 gm DAILYPRN PRN ORAL Constipation 09/24/17 22:30 10/24/17 22:29 Sennosides (Senokot) 8.6 mg DAILYPRN PRN ORAL Constipation 09/27/17 15:00 10/27/17 14:59 Temazepam (Restoril) 15 mg HSPRN PRN ORAL Insomnia 09/24/17 22:30 10/01/17 22:29 Allergies: Coded Allergies: TETRACYCLINE (Verified Allergy, Unknown, 09/24/17) ROS Limited/Unobtainable: No Constitutional: Reports: no symptoms HEENT: Reports: no symptoms Cardiovascular: Reports: no symptoms Respiratory: Reports: no symptoms Gastrointestinal/Abdominal: Reports: no symptoms Genitourinary: Reports: no symptoms Neurologic/Psychiatric: Reports: no symptoms Subjective 82 YO F admitted with UTI. Await acceptance at [facility]. Cover for Int Carl-Dr Wagner. Objective Last Vital Signs Date Time Temp Pulse Resp B/P (MAP) Pulse Ox O2 Delivery O2 Flow Rate FiO2 10/01/17 11:40 97.6 87 20 116/53 94 Room Air Laboratory Tests Test 10/01/17 04:35 White Blood Count 5.8 K/UL (4.8-10.8) Red Blood Count 3.51 M/UL (4.20-5.40) L Hemoglobin 11.7 G/DL (12.0-16.0) L Hematocrit 33.0 % (37.0-47.0) L Mean Corpuscular Volume 94 FL (80-99) Mean Corpuscular Hemoglobin 33.3 PG (27.0-31.0) H Mean Corpuscular Hemoglobin Concent 35.4 G/DL (32.0-36.0) Red Cell Distribution Width 12.1 % (11.6-14.8) Platelet Count 226 K/UL (150-450) Mean Platelet Volume 5.4 FL (6.5-10.1) L Neutrophils (%) (Auto) 54.6 % (45.0-75.0) Lymphocytes (%) (Auto) 27.7 % (20.0-45.0) Monocytes (%) (Auto) 11.2 % (1.0-10.0) H Eosinophils (%) (Auto) 5.3 % (0.0-3.0) H Basophils (%) (Auto) 1.3 % (0.0-2.0) Sodium Level 139 MMOL/L (136-145) Potassium Level 4.2 MMOL/L (3.5-5.1) Chloride Level 106 MMOL/L (98-107) Carbon Dioxide Level 26 MMOL/L (21-32) Anion Gap 7 mmol/L (5-15) Blood Urea Nitrogen 17 mg/dL (7-18) Creatinine 0.7 MG/DL (0.55-1.30) Estimat Glomerular Filtration Rate mL/min (>60) Glucose Level 146 MG/DL (74-106) H Calcium Level 9.0 MG/DL (8.5-10.1) Microbiology Date/Time Source Procedure Growth Status 09/29/17 13:15 Blood Blood Culture - Preliminary NO GROWTH AFTER 24 HOURS Resulted 09/29/17 13:10 Blood Blood Culture - Preliminary NO GROWTH AFTER 24 HOURS Resulted Intake and Output 10/01/17 10/02/17 19:00 07:00 Intake Total 360 ml Balance 360 ml Intake Oral 360 ml Objective Objective General: No acute distress, awake and alert HEENT: NCAT, sclera anicteric, PERRL, EOMI. Neck: Supple, no significant jugular venous distention, Lungs: Good inspiratory effort, clear to auscultation bilaterally, no Wheeze or Rales. Heart: Regular rate and rhythm, normal S1/S2, no murmurs Abdomen: soft, nontender, nondistended. Normoactive bowel sounds. / Rectal: Refused and deferred. Extremities: No Cyanosis , clubbing or edema. Neuro: A&O x 3, Able to move all extremities Skin: warm, no rashes or lesions Psych: Normal mood and affect Assessment/Plan Problem List: (1) Neurogenic bladder (2) Diabetes mellitus, type II Assessment & Plan: Continue novolog (3) CAD (coronary artery disease) (4) UTI (urinary tract infection) Assessment & Plan: Klebsiella pneumo. Continue cipro per ID (5) Generalized weakness (6) Sepsis Assessment & Plan: Gram neg coccobacilli. Patient refused IV daptomycin-ID aware; see note. Await repeat blood cultures. Cont cipro per ID Assessment/Plan Discharge planning: [facility] CINTHIA CASIANO Oct 01, 2017 12:33
[2017-10-01 15:37] VITALS: BP 155/73
[2017-10-01 20:00] VITALS: BP 109/72
[2017-10-02] VITALS: BP 122/71
[2017-10-02 03:18] VITALS: BP 124/67
[2017-10-02] MEDS: NovoLOG Insulin Flexpen SUBQ SCH ×2 (07:12→11:44)
[2017-10-02 07:14] LABS: BASOPHILS % (AUTO) 1.7 % (0.0-2.0); LYMPHOCYTES % (AUTO) 26.2 % (20.0-45.0); MEAN CORPUSCULAR HEMOGLOBIN 32.9 PG (27.0-31.0); MEAN CORPUSCULAR HGB CONC 35.4 G/DL (32.0-36.0); MEAN CORPUSCULAR VOLUME 93 FL (80-99); MEAN PLATELET VOLUME 5.3 FL (6.5-10.1); MONOCYTES % (AUTO) 10.3 % (1.0-10.0); NEUTROPHILS % (AUTO) 56.8 % (45.0-75.0); PLATELET COUNT 225 K/UL (150-450); RED BLOOD COUNT 3.55 M/UL (4.20-5.40); RED CELL DISTRIBUTION WIDTH 12.1 % (11.6-14.8); WHITE BLOOD COUNT 6.3 K/UL (4.8-10.8)
[2017-10-02 07:21] LABS: ALANINE AMINOTRANSFERASE 27 U/L (12-78); ANION GAP 7 mmol/L (5-15); ASPARTATE AMINO TRANSFERASE 19 U/L (15-37); CALCIUM 9.1 MG/DL (8.5-10.1); CARBON DIOXIDE 27 MMOL/L (21-32); CHLORIDE 102 MMOL/L (98-107); CREATININE 0.7 MG/DL (0.55-1.30); MAGNESIUM 1.7 MG/DL (1.8-2.4); POTASSIUM 4.2 MMOL/L (3.5-5.1); SODIUM 136 MMOL/L (136-145); TOTAL PROTEIN 6.4 G/DL (6.4-8.2)
[2017-10-02 08:17] VITALS: BP 135/79
[2017-10-02] MEDS: Heparin 5000 units/ml inj SUBQ SCH (09:00)
[2017-10-02] MEDS: Ciprofloxacin 500mg tab ORAL SCH (09:05)
--- NOTE | 2017-10-02 09:36 | Infectious Diseases Prog Note ---
Assessment/Plan Assessment/Plan ASSESSMENT: 82 y/o female with: // Probable recurrent complicated UTI - UCx>100K K. pna (S ancef, cipro/levo, bactrim; R amp, I nitrofurantoin), on Rx -Renal US: Negative for hydronephrosis. Bladder diverticulum. Postvoid bladder volume 70 mL. - h/o K.pneumoniae - h/o neurogenic bladder, retention SP surgery //11/12 bacteremia-contaminant/commensal organism -Bcx 09/24 11/12 COMMENTS: BETA LACTAMASE= POSITIVE Organism 1 MORAXELLA PHENYLPYRUVICA ; Bcx 09/29 NTD // Afebrile without leukocytosis // Generalized weakness // DM2 with hyperglycemia // h/o CAD // [facility] resident // Tetracycline allergy //VRE colonized // Full Code PLAN: - continue PO Cipro abx d# 06/18 for UTI -09/30 SP IV Vancomycin #2 -09/27 SP IV Cefepime #3 -09/26 SP IV Vancomycin #2 - f/u repeat blood cultures - monitor CBC, temperatures - monitor BMP -Stable for discharge from ID stand point Discussed with RN. Subjective Allergies: Coded Allergies: TETRACYCLINE (Verified Allergy, Unknown, 09/24/17) Subjective afebrile no leukocytosis repeat bcx NTD Objective Vital Signs Last 24 Hour Vital Signs Date Time Temp Pulse Resp B/P (MAP) Pulse Ox O2 Delivery O2 Flow Rate FiO2 10/02/17 08:17 97.0 80 20 135/79 95 Room Air 10/02/17 08:11 82 18 Room Air 10/02/17 03:18 98.1 79 20 124/67 97 Room Air 10/02/17 00:00 97.8 79 20 122/71 97 Room Air 10/01/17 20:06 77 18 Room Air 10/01/17 20:00 97.7 87 20 109/72 95 Room Air 10/01/17 15:37 98.0 80 20 155/73 98 Room Air 10/01/17 11:40 97.6 87 20 116/53 94 Room Air Height (Feet): 5 Height (Inches): 3.00 Weight (Pounds): 133 Objective General Appearance: no apparent distress, alert Lines, tubes and drains: peripheral HEENT: normocephalic, atraumatic, anicteric, mucous membranes moist Neck: non-tender, supple Respiratory/Chest: lungs clear - with moderate air entry , no respiratory distress, no accessory muscle use Cardiovascular/Chest: normal rate, regular rhythm, no JVD Abdomen: normal bowel sounds, non tender, soft Extremities: non-tender, no calf tenderness 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4 G/DL (32.0-36.0) Red Cell Distribution Width 12.1 % (11.6-14.8) Platelet Count 225 K/UL (150-450) Mean Platelet Volume 5.3 FL (6.5-10.1) L Neutrophils (%) (Auto) 56.8 % (45.0-75.0) Lymphocytes (%) (Auto) 26.2 % (20.0-45.0) Monocytes (%) (Auto) 10.3 % (1.0-10.0) H Eosinophils (%) (Auto) 5.0 % (0.0-3.0) H Basophils (%) (Auto) 1.7 % (0.0-2.0) Sodium Level 136 MMOL/L (136-145) Potassium Level 4.2 MMOL/L (3.5-5.1) Chloride Level 102 MMOL/L (98-107) Carbon Dioxide Level 27 MMOL/L (21-32) Anion Gap 7 mmol/L (5-15) Blood Urea Nitrogen 17 mg/dL (7-18) Creatinine 0.7 MG/DL (0.55-1.30) Estimat Glomerular Filtration Rate mL/min (>60) Glucose Level 176 MG/DL (74-106) H Calcium Level 9.1 MG/DL (8.5-10.1) Phosphorus Level 4.0 MG/DL (2.5-4.9) Magnesium Level 1.7 MG/DL (1.8-2.4) L Total Bilirubin 0.5 MG/DL (0.2-1.0) Aspartate Amino Transf (AST/SGOT) 19 U/L (15-37) Alanine Aminotransferase (ALT/SGPT) 27 U/L (12-78) Alkaline Phosphatase 68 U/L (46-116) Total Protein 6.4 G/DL (6.4-8.2) Albumin 3.2 G/DL (3.4-5.0) L Globulin 3.2 g/dL Albumin/Globulin Ratio 1.0 (1.0-2.7) Current Medications Medications (Trade) Dose Ordered Sig/Gemma Route PRN Reason Start Time Stop Time Status Last Admin Dose Admin Acetaminophen (Tylenol) 650 mg Q4H PRN ORAL fever 09/24/17 22:30 10/24/17 22:29 09/29/17 23:55 Ciprofloxacin (Cipro 500mg tab) 500 mg EVERY 12 HOURS ORAL 09/27/17 09:00 10/04/17 08:59 10/02/17 09:05 Dextrose (Dextrose 50%) STAT PRN IV Hypoglycemia 09/24/17 22:30 10/24/17 22:29 Escitalopram Oxalate (Lexapro) 10 mg DAILY ORAL 09/26/17 09:00 10/26/17 08:59 09/27/17 08:38 Heparin Sodium (Porcine) (Heparin 5000 units/ml) 5,000 units EVERY 12 HOURS SUBQ 09/25/17 09:00 10/25/17 08:59 09/28/17 21:01 Insulin Aspart (NovoLOG) BEFORE MEALS AND HS SUBQ 09/25/17 06:30 10/25/17 06:29 10/02/17 07:12 Ondansetron HCl (Zofran) 4 mg Q6H PRN IVP Nausea & Vomiting 09/24/17 22:30 10/24/17 22:29 Phenazopyridine HCl (Pyridium) 100 mg DAILY PRN ORAL dysuria 09/24/17 22:30 10/24/17 22:29 Polyethylene Glycol (Miralax) 17 gm DAILYPRN PRN ORAL Constipation 09/24/17 22:30 10/24/17 22:29 Sennosides (Senokot) 8.6 mg DAILYPRN PRN ORAL Constipation 09/27/17 15:00 10/27/17 14:59 Merissa Jeffries M.D. Oct 02, 2017 09:36
--- NOTE | 2017-10-02 11:34 | Pulmonology Progress Note ---
Assessment/Plan Problems: (1) Complicated UTI (urinary tract infection) (2) Diabetes (3) Generalized weakness Assessment/Plan c/o incontinence, appealed the discharge no new complains check electrolytes Psych f/u sliding scale symptomatic treatment dc planning in progress Subjective ROS Limited/Unobtainable: No Constitutional: Reports: no symptoms HEENT: Repors: no symptoms Allergies: Coded Allergies: TETRACYCLINE (Verified Allergy, Unknown, 09/24/17) Objective Last 24 Hour Vital Signs Date Time Temp Pulse Resp B/P (MAP) Pulse Ox O2 Delivery O2 Flow Rate FiO2 10/02/17 08:17 97.0 80 20 135/79 95 Room Air 10/02/17 08:11 82 18 Room Air 10/02/17 03:18 98.1 79 20 124/67 97 Room Air 10/02/17 00:00 97.8 79 20 122/71 97 Room Air 10/01/17 20:06 77 18 Room Air 10/01/17 20:00 97.7 87 20 109/72 95 Room Air 10/01/17 15:37 98.0 80 20 155/73 98 Room Air 10/01/17 11:40 97.6 87 20 116/53 94 Room Air Objective General Appearance: WD/WN HEENT: normocephalic, anicteric Cardiovascular: normal peripheral pulses, normal rate Abdomen: normal bowel sounds, no organomegaly Genitourinary: normal external genitalia Extremities: no clubbing Skin: no lesions Lymphatic: no neck adenopathy Microbiology Date/Time Source Procedure Growth Status 09/29/17 13:15 Blood Blood Culture - Preliminary NO GROWTH AFTER 48 HOURS Resulted 09/29/17 13:10 Blood Blood Culture - Preliminary NO GROWTH AFTER 48 HOURS Resulted Laboratory Tests 10/02/17 06:25: White Blood Count 6.3, Red Blood Count 3.55L, Hemoglobin 11.7L, Hematocrit 33.1L , Mean Corpuscular Volume 93, Mean Corpuscular Hemoglobin 32.9H, Mean Corpuscular Hemoglobin Concent 35.4, Red Cell Distribution Width 12.1, Platelet Count 225, Mean Platelet Volume 5.3L, Neutrophils (%) (Auto) 56.8, Lymphocytes ( %) (Auto) 26.2, Monocytes (%) (Auto) 10.3H, Eosinophils (%) (Auto) 5.0H, Basophils (%) (Auto) 1.7, Sodium Level 136, Potassium Level 4.2, Chloride Level 102, Carbon Dioxide Level 27, Anion Gap 7, Blood Urea Nitrogen 17, Creatinine 0.7, Estimat Glomerular Filtration Rate , Glucose Level 176H, Calcium Level 9.1 , Phosphorus Level 4.0, Magnesium Level 1.7L, Total Bilirubin 0.5, Aspartate Amino Transf (AST/SGOT) 19, Alanine Aminotransferase (ALT/SGPT) 27, Alkaline Phosphatase 68, Total Protein 6.4, Albumin 3.2L, Globulin 3.2, Albumin/Globulin Ratio 1.0 Current Medications Medications (Trade) Dose Ordered Sig/Gemma Route PRN Reason Start Time Stop Time Status Last Admin Dose Admin Acetaminophen (Tylenol) 650 mg Q4H PRN ORAL fever 09/24/17 22:30 10/24/17 22:29 09/29/17 23:55 Ciprofloxacin (Cipro 500mg tab) 500 mg EVERY 12 HOURS ORAL 09/27/17 09:00 10/04/17 08:59 10/02/17 09:05 Dextrose (Dextrose 50%) STAT PRN IV Hypoglycemia 09/24/17 22:30 10/24/17 22:29 Escitalopram Oxalate (Lexapro) 10 mg DAILY ORAL 09/26/17 09:00 10/26/17 08:59 09/27/17 08:38 Heparin Sodium (Porcine) (Heparin 5000 units/ml) 5,000 units EVERY 12 HOURS SUBQ 09/25/17 09:00 10/25/17 08:59 09/28/17 21:01 Insulin Aspart (NovoLOG) BEFORE MEALS AND HS SUBQ 09/25/17 06:30 10/25/17 06:29 10/02/17 07:12 Magnesium Oxide (Mag-Ox 400mg) 400 mg ONCE ONCE ORAL 10/02/17 11:30 10/02/17 11:31 UNV Ondansetron HCl (Zofran) 4 mg Q6H PRN IVP Nausea & Vomiting 09/24/17 22:30 10/24/17 22:29 Phenazopyridine HCl (Pyridium) 100 mg DAILY PRN ORAL dysuria 09/24/17 22:30 10/24/17 22:29 Polyethylene Glycol (Miralax) 17 gm DAILYPRN PRN ORAL Constipation 09/24/17 22:30 10/24/17 22:29 Sennosides (Senokot) 8.6 mg DAILYPRN PRN ORAL Constipation 09/27/17 15:00 10/27/17 14:59 DULCE DOMINGO Oct 02, 2017 11:34
[2017-10-02] MEDS ORDERED: Magnesium Oxide 400mg tab ORAL ONE (12:00)
[2017-10-02 12:19] VITALS: BP 133/68
--- NOTE | 2017-10-02 13:43 | Internal Med Progress Note ---
Subjective Physician Name PalmerJonh morgan Attending Physician Arnel Wagner MD Current Medications Medications (Trade) Dose Ordered Sig/Gemma Route PRN Reason Start Time Stop Time Status Last Admin Dose Admin Acetaminophen (Tylenol) 650 mg Q4H PRN ORAL fever 09/24/17 22:30 10/24/17 22:29 09/29/17 23:55 Ciprofloxacin (Cipro 500mg tab) 500 mg EVERY 12 HOURS ORAL 09/27/17 09:00 10/04/17 08:59 10/02/17 09:05 Dextrose (Dextrose 50%) STAT PRN IV Hypoglycemia 09/24/17 22:30 10/24/17 22:29 Escitalopram Oxalate (Lexapro) 10 mg DAILY ORAL 09/26/17 09:00 10/26/17 08:59 09/27/17 08:38 Heparin Sodium (Porcine) (Heparin 5000 units/ml) 5,000 units EVERY 12 HOURS SUBQ 09/25/17 09:00 10/25/17 08:59 09/28/17 21:01 Insulin Aspart (NovoLOG) BEFORE MEALS AND HS SUBQ 09/25/17 06:30 10/25/17 06:29 10/02/17 11:44 Ondansetron HCl (Zofran) 4 mg Q6H PRN IVP Nausea & Vomiting 09/24/17 22:30 10/24/17 22:29 Phenazopyridine HCl (Pyridium) 100 mg DAILY PRN ORAL dysuria 09/24/17 22:30 10/24/17 22:29 Polyethylene Glycol (Miralax) 17 gm DAILYPRN PRN ORAL Constipation 09/24/17 22:30 10/24/17 22:29 Sennosides (Senokot) 8.6 mg DAILYPRN PRN ORAL Constipation 09/27/17 15:00 10/27/17 14:59 Allergies: Coded Allergies: TETRACYCLINE (Verified Allergy, Unknown, 09/24/17) Subjective 82 YO F admitted with UTI. Await discharge to [facility]. Cover for Int Med-Dr Wagner. Objective Last Vital Signs Date Time Temp Pulse Resp B/P (MAP) Pulse Ox O2 Delivery O2 Flow Rate FiO2 10/02/17 12:19 98.1 88 20 133/68 97 Room Air Laboratory Tests Test 10/02/17 06:25 White Blood Count 6.3 K/UL (4.8-10.8) Red Blood Count 3.55 M/UL (4.20-5.40) L Hemoglobin 11.7 G/DL (12.0-16.0) L Hematocrit 33.1 % (37.0-47.0) L Mean Corpuscular Volume 93 FL (80-99) Mean Corpuscular Hemoglobin 32.9 PG (27.0-31.0) H Mean Corpuscular Hemoglobin Concent 35.4 G/DL (32.0-36.0) Red Cell Distribution Width 12.1 % (11.6-14.8) Platelet Count 225 K/UL (150-450) Mean Platelet Volume 5.3 FL (6.5-10.1) L Neutrophils (%) (Auto) 56.8 % (45.0-75.0) Lymphocytes (%) (Auto) 26.2 % (20.0-45.0) Monocytes (%) (Auto) 10.3 % (1.0-10.0) H Eosinophils (%) (Auto) 5.0 % (0.0-3.0) H Basophils (%) (Auto) 1.7 % (0.0-2.0) Sodium Level 136 MMOL/L (136-145) Potassium Level 4.2 MMOL/L (3.5-5.1) Chloride Level 102 MMOL/L (98-107) Carbon Dioxide Level 27 MMOL/L (21-32) Anion Gap 7 mmol/L (5-15) Blood Urea Nitrogen 17 mg/dL (7-18) Creatinine 0.7 MG/DL (0.55-1.30) Estimat Glomerular Filtration Rate mL/min (>60) Glucose Level 176 MG/DL (74-106) H Calcium Level 9.1 MG/DL (8.5-10.1) Phosphorus Level 4.0 MG/DL (2.5-4.9) Magnesium Level 1.7 MG/DL (1.8-2.4) L Total Bilirubin 0.5 MG/DL (0.2-1.0) Aspartate Amino Transf (AST/SGOT) 19 U/L (15-37) Alanine Aminotransferase (ALT/SGPT) 27 U/L (12-78) Alkaline Phosphatase 68 U/L (46-116) Total Protein 6.4 G/DL (6.4-8.2) Albumin 3.2 G/DL (3.4-5.0) L Globulin 3.2 g/dL Albumin/Globulin Ratio 1.0 (1.0-2.7) Objective Objective General: No acute distress, awake and alert HEENT: NCAT, sclera anicteric, PERRL, EOMI. Neck: Supple, no significant jugular venous distention, Lungs: Good inspiratory effort, clear to auscultation bilaterally, no Wheeze or Rales. Heart: Regular rate and rhythm, normal S1/S2, no murmurs Abdomen: soft, nontender, nondistended. Normoactive bowel sounds. / Rectal: Refused and deferred. Extremities: No Cyanosis , clubbing or edema. Neuro: A&O x 3, Able to move all extremities Skin: warm, no rashes or lesions Psych: Normal mood and affect Assessment/Plan Problem List: (1) Neurogenic bladder (2) Diabetes mellitus, type II Assessment & Plan: Continue novolog (3) CAD (coronary artery disease) (4) UTI (urinary tract infection) Assessment & Plan: Klebsiella pneumo. Continue cipro per ID (5) Generalized weakness (6) Sepsis Assessment & Plan: Gram neg coccobacilli. Patient refused IV daptomycin-ID aware; see note. Await repeat blood cultures. Cont cipro per ID Status: stable Assessment/Plan Discharge planning: [facility] JONH PALMER Oct 02, 2017 13:43
[2017-10-02] MEDS ORDERED: CIPROFLOXACIN500 M2 ORAL (13:45)
--- NOTE | 2017-10-05 11:59 | Discharge Summary ---
Discharge Summary Hospital Course Date of Admission Sep 24, 2017 at 21:45 Date of Discharge Oct 02, 2017 at 16:25 Admitting Diagnosis complicated UTI HPI Deborah Corado is a 82 year old female who was admitted on Sep 24, 2017 at 21:45 for Complicated Urinary Tract Infection Hospital Course dc summary #[id number] Discharge Medications New Medications: Ciprofloxacin Hcl* (Ciprofloxacin Hcl*) 500 Mg Tablet 500 MG ORAL EVERY 12 HOURS for 5 Days, TAB Continued Medications: Acetaminophen* (Acetaminophen 325MG Tablet*) 325 Mg Tablet 650 MG ORAL Q4H PRN for Mild Pain (Pain Scale 1-3), TAB Aspirin (Aspirin EC) 81 Mg Tablet.dr 81 MG ORAL DAILY, TAB Glipizide (Glipizide) 10 Mg Tablet 10 MG ORAL BIDAC Lorazepam* (Lorazepam*) 0.5 Mg Tablet 0.5 MG ORAL Q6HR PRN for For Anxiety, TAB Metformin Hcl* (Metformin Hcl*) 500 Mg Tablet 500 MG ORAL TWICE A DAY, TAB Mirtazapine* (Mirtazapine*) 7.5 Mg Tablet 7.5 MG ORAL BEDTIME, TAB Oxybutynin Chloride (Oxybutynin Chloride) 5 Mg Tablet 10 MG ORAL BID, TAB Sennosides (Jamila-Dung) 8.6 Mg Tablet 8.6 MG PO BEDTIME, TAB Sitagliptin* (Januvia*) 25 Mg Tablet 50 MG ORAL ACBREAKFAST, TAB Zolpidem Tartrate* (Zolpidem Tartrate*) 5 Mg Tablet 5 MG ORAL BEDTIME for Insomnia Discharge Condition Upon Discharge: stable Discharge Disposition Patient was discharged to SNF/Subacute Facility(03) Discharge Diagnoses: Tanmay (Serjio)Viki NP Oct 05, 2017 11:59
--- NOTE | 2017-10-05 16:30 | Discharge Summary 2 SIG ---
DATE OF ADMISSION: 09/24/2017 DATE OF DISCHARGE: 10/02/2017 REASON FOR ADMISSION: 82-year-old female with a past medical history of diabetes mellitus, COPD, coronary artery disease, depression, bladder surgery, neurogenic bladder, urinary retention, and recurrent UTI, was sent from the nursing home facility due to increased generalized weakness. The patient had a recent urinary tract infection with Klebsiella. No reports of nausea, vomiting, fever, or chills. Workup in the emergency department revealed no leukocytosis. No fevers. Urinalysis was grossly positive for UTI. The patient was admitted for management of complicated UTI . HOSPITAL COURSE: The patient was admitted to Med/Surg floor. The patient was started on empiric antibiotics. Urine culture was positive for Klebsiella. Blood culture showed growth of Moraxella 1/4, likely contaminant as per ID. Repeated blood cultures were negative. The patient was discharged on oral antibiotic to nursing home facility to complete the course of treatment as suggested by ID who directed the antibiotic regimen. Blood sugar was managed with a sliding scale of insulin. Hemoglobin A1c -9.2, not at goal. Blood sugar regimen needs to be further optimized as an outpatient. Continue diabetic diet. Hemoglobin and hematocrit were closely monitored, remained at the baseline. Supplemental oxygen was provided as needed to keep saturation above 92%. Pulmonary toilet order was on board. Pulse oximetry was stable on room air. No need for the oxygen. DVT prophylaxis was provided. Pain management was provided. Diet was started as tolerated. Antiemetic was provided as needed. The patient undergone a renal ultrasound, which revealed no hydronephrosis and normal bilateral kidney echogenicity. Postvoid residual-70 mL. Psychiatrist seen and evaluated the patient and diagnosed her with dementia and anxiety disorder. The patient was placed on Lexapro and Ambien as needed for sleep. The patient stabilized and clinically imp[roved. DVT prophylaxis was provided. Bowel regimen was instituted. The patient was stable for discharge to nursing home facility for continuation of care. FINAL DIAGNOSES: 1. Possible sepsis. 2. Complicated recurrent urinary tract infection with Klebsiella. 3. Neurogenic bladder with history of urinary retention. 4. Diabetes mellitus type 2. 5. Chronic obstructive pulmonary disease. 6. Coronary artery disease. 7. Dementia. 8. Anxiety disorder. 9. History of bladder surgery. 10. Anemia. 12. Possible protein-calorie malnutrition. DISCHARGE MEDICATIONS: See medication reconciliation list. DISCHARGE INSTRUCTIONS: The patient was discharged to nursing home facility. Follow up with medical doctor at the facility. Arnel Wagner M.D. Viki McdanielBrookdale University Hospital And Medical CenterNiharika Steele DR: MÓNICA JOB#: [id number] CC: KELIN
== END 2017-10-02 16:25 | DRG 690 ==
LOC: EDBD 20:11 → EMR 21:41 → 4W 21:45 → EDBEDREQ 22:23 → 4W 23:45 → 4E 09-25 17:06
DX: N39.0 Urinary tract infection, site not specified (principal); E46 Unspecified protein-calorie malnutrition; F03.90 Unspecified dementia, unspecified severity, without behavioral disturbance, psychotic disturbance, mood disturbance, and anxiety; J44.9 Chronic obstructive pulmonary disease, unspecified; E11.65 Type 2 diabetes mellitus with hyperglycemia; N31.9 Neuromuscular dysfunction of bladder, unspecified; B96.1 Klebsiella pneumoniae [K. pneumoniae] as the cause of diseases classified elsewhere; F32.9 Major depressive disorder, single episode, unspecified; D64.9 Anemia, unspecified; F41.9 Anxiety disorder, unspecified; I25.10 Atherosclerotic heart disease of native coronary artery without angina pectoris; Z68.23 Body mass index [BMI] 23.0-23.9, adult; Z87.440 Personal history of urinary (tract) infections; Z79.82 Long term (current) use of aspirin
CPT/HCPCS: 36415; 76775; 80048; 80053; 81003; 82962; 83036; 83605; 83735; 84100; 85025; 87040; 87081; 87086; 87181; 94664; 99285; J1815